=== PATIENT | female | born 1950 | race Caucasian/White ===

== ENCOUNTER 2017-06-30 16:57 | Emergency (ER) | payer MEDICARE ==
[~2017-06-30] VITALS: Ht 170.2 cm; Wt 113.6 kg
[~2017-06-30 16:57] MED LIST: AMITRIPTYLIN25 MG PO; CITALOPRAM20 MG PO; CYCLOBENZAPR10 MG PO; DILAUDID 2MG2 MG/TA1 PO; GABAPENTIN300 MG PO; KEPPRA XR750 MG PO; KEPPRA750 M2 PO; KLOR-CON 1010 ME1 PO; LASIX 40 MG TAB40 MG PO; LYRICA25 MG PO; MELOXICAM7.5 MG PO; METFORMIN500 MG PO; METOPROL TAR25 MG PO; PROTONIX40 MG PO; ROBAXIN-750750 MG PO; ROBITUSSIN AC10 ML PO; ROPINIROLE0.5 MG PO; SIMVASTATIN10 MG PO; SINEQUAN25 MG PO; ULTRAM50 M1 PO; ZPAK PO
[2017-06-30 18:17] LABS: HEMOGLOBIN 12.6 g/dl (12.0-16.0); IMMATURE GRANULOCYTES 0.2 % (0.0-1.0); MEAN CELL VOLUME 92.4 fL CALC (80.0-100.0); MEAN CORPUSCULAR HGB 29.9 pG CALC (26.0-32.0); MEAN CORPUSCULAR HGB CONC 32.3 g/L CALC (32.0-36.0); NEUT# 5.86 thou/uL (2.00-7.15); RED BLOOD COUNT 4.22 mill/uL (4.20-5.60)
[2017-06-30 18:34] LABS: ALBUMIN 3.9 g/dL (3.2-5.0); ALKALINE PHOSPHATASE 92 u/l (38-126); ANION GAP 14 (6-22 (CALC)); BILIRUBIN, TOTAL 0.3 mg/dL (0.0-1.4); BUN 17 mg/dL (8-23); BUN/CREATININE RATIO 19 (12-20 (CALC)); CARBON DIOXIDE 28 mmol/l (22-30); CHLORIDE 107 mmol/l (95-108); CREATININE 0.9 mg/dL (0.5-1.0); GFR > 60 ML/MIN (>=60 (CALC)); GFR FOR AFR.AMER. > 60 ML/MIN (>=60 (CALC)); POTASSIUM 4.4 mmol/l (3.5-5.1); SGOT/AST 19 u/l (9-36); SGPT/ALT 21 u/l (11-66); SODIUM 145 mmol/l (137-146); TOTAL PROTEIN 6.5 g/dL (6.3-8.2)
[2017-06-30 18:45] LABS: MYOGLOBIN 37 ng/mL (0 - 62)
[2017-06-30 22:41] VITALS: BP 159/63
== END 2017-06-30 22:41 | disposition home or self-care (01) ==
LOC: ED 16:57
PROVIDERS: Emergency Medicine
DX: R07.9 Chest pain, unspecified (principal); R42 Dizziness and giddiness; R11.0 Nausea; R06.02 Shortness of breath; I10 Essential (primary) hypertension; R00.1 Bradycardia, unspecified
CPT/HCPCS: Q9967

== ENCOUNTER 2018-11-28 06:33 | Emergency (ER) | payer MEDICARE ==
[~2018-11-28] VITALS: Ht 170.2 cm; Wt 113.6 kg
[2018-11-28] MEDS ORDERED: VIMPAT100 MG PO (06:51)
[2018-11-28] MEDS ORDERED: TRAZODONE50 MG PO (06:53)
[2018-11-28] MEDS ORDERED: LISINOPRIL20 M1 PO (06:53)
[2018-11-28] MEDS ORDERED: BUMETANIDE1 MG PO (06:54)
[2018-11-28] MEDS ORDERED: NORVASC5 M1 PO (06:55)
[2018-11-28] MEDS ORDERED: TOPROL XL50 MG PO (06:56)
[2018-11-28] MEDS ORDERED: LORATADINE10 M3 PO (06:57)
[2018-11-28] MEDS ORDERED: HYDRALAZINE10 MG PO (06:58)
[2018-11-28 07:25] LABS: HEMATOCRIT 38.3 % (37.0-47.0); IMMATURE GRANULOCYTES 0.3 % (0.0-5.0); MEAN CELL VOLUME 94.1 fL CALC (80.0-100.0); MEAN CORPUSCULAR HGB 29.5 pG CALC (26.0-32.0); MEAN CORPUSCULAR HGB CONC 31.3 g/L CALC (32.0-36.0); NEUT# 4.8 thou/uL (2.00-7.15); RED BLOOD COUNT 4.07 mill/uL (4.20-5.60); RED CELL DISTRI WIDTH 13.4 % (11.5-15.5)
[2018-11-28 07:49] LABS: URINE BILIRUBIN - DIPSTICK NEGATIVE (NEGATIVE); URINE BLOOD DIPSTICK NEGATIVE (NEGATIVE); URINE COLOR YELLOW; URINE GLUCOSE - DIPSTICK NEGATIVE (NEGATIVE); URINE KETONE NEGATIVE (NEGATIVE); URINE LEUK ESTERASE NEGATIVE (NEGATIVE); URINE NITRITE - DIPSTICK NEGATIVE (Negative); URINE PROTEIN - DIPSTICK NEGATIVE (NEG-TRACE); URINE UROBILINOGEN - DIPSTICK 0.2 E.U./dL (0.2)
[2018-11-28 08:33] LABS: ALBUMIN 3.7 g/dL (3.2-5.0); ALKALINE PHOSPHATASE 82 u/l (38-126); ANION GAP 11 (6-22 (CALC)); BILIRUBIN, TOTAL 0.4 mg/dL (0.0-1.4); BUN 11 mg/dL (8-23); BUN/CREATININE RATIO 14 (12-20 (CALC)); CARBON DIOXIDE 31 mmol/l (22-30); CHLORIDE 106 mmol/l (95-108); CREATININE 0.8 mg/dL (0.5-1.0); GFR > 60 ML/MIN (>=60 (CALC)); GFR FOR AFR.AMER. > 60 ML/MIN (>=60 (CALC)); POTASSIUM 3.6 mmol/l (3.5-5.1); SGOT/AST 21 u/l (9-36); SODIUM 145 mmol/l (137-146); TOTAL PROTEIN 6.8 g/dL (6.3-8.2)
[2018-11-28 08:45] LABS: MYOGLOBIN 41 ng/mL (0 - 62)
[2018-11-28] MEDS ORDERED: CATAPRES0.1 MG PO (10:29)
[2018-11-28 10:50] VITALS: BP 149/66
== END 2018-11-28 11:09 | disposition home or self-care (01) ==
LOC: ED 06:33
PROVIDERS: Family Medicine
DX: I10 Essential (primary) hypertension (principal); R51 Headache

== ENCOUNTER 2019-03-22 22:12 | Inpatient (IN) | payer MEDICARE ==
[~2019-03-22] VITALS: Ht 170.2 cm; Wt 119.2 kg
[~2019-03-22 22:12] MED LIST changes: +BUMETANIDE1 MG PO; +CATAPRES0.1 MG PO; +HYDRALAZINE10 MG PO; +LISINOPRIL20 M1 PO; +LORATADINE10 M3 PO; +NORVASC5 M1 PO; +TOPROL XL50 MG PO; +TRAZODONE50 MG PO; +VIMPAT100 MG PO
[2019-03-22 23:05] LABS: HEMOGLOBIN 12.1 g/dl (12.0-16.0); IMMATURE GRANULOCYTES 0.3 % (0.0-5.0); MEAN CELL VOLUME 92.8 fL CALC (80.0-100.0); MEAN CORPUSCULAR HGB CONC 31.3 g/L CALC (32.0-36.0); NEUT# 7.79 thou/uL (2.00-7.15); RED BLOOD COUNT 4.17 mill/uL (4.20-5.60); RED CELL DISTRI WIDTH 14.1 % (11.5-15.5)
[2019-03-22 23:22] LABS: HEMATOCRIT 38.7 % (37.0-47.0)
[2019-03-22 23:23] LABS: ALBUMIN 4.2 g/dL (3.2-5.0); ALKALINE PHOSPHATASE 66 u/l (38-126); ANION GAP 9 (6-22 (CALC)); BILIRUBIN, TOTAL 0.9 mg/dL (0.0-1.4); BUN 10 mg/dL (8-23); BUN/CREATININE RATIO 11 (12-20 (CALC)); CARBON DIOXIDE 39 mmol/l (22-30); CHLORIDE 96 mmol/l (95-108); CREATININE 0.9 mg/dL (0.5-1.0); GFR > 60 ML/MIN (>=60 (CALC)); GFR FOR AFR.AMER. > 60 ML/MIN (>=60 (CALC)); POTASSIUM 3.4 mmol/l (3.5-5.1); SGOT/AST 47 u/l (9-36); SODIUM 141 mmol/l (137-146); TOTAL PROTEIN 7.9 g/dL (6.3-8.2)
[2019-03-22 23:35] LABS: MYOGLOBIN 52 ng/mL (0 - 62)
[2019-03-23] VITALS (13 sets, daily range): BP systolic 106–199; BP diastolic 46–83
[2019-03-23] MEDS ORDERED: ASPIRIN 81 LOW81 MG PO (01:03)
[2019-03-24] VITALS (11 sets, daily range): BP systolic 103–157; BP diastolic 42–76
[2019-03-24 06:36] LABS: ANION GAP 9 (6-22 (CALC)); BUN 10 mg/dL (8-23); BUN/CREATININE RATIO 10 (12-20 (CALC)); CARBON DIOXIDE 39 mmol/l (22-30); CHLORIDE 96 mmol/l (95-108); CREATININE 0.9 mg/dL (0.5-1.0); GFR > 60 ML/MIN (>=60 (CALC)); GFR FOR AFR.AMER. > 60 ML/MIN (>=60 (CALC)); MAGNESIUM 2.2 mg/dL (1.6-2.3); POTASSIUM 3.1 mmol/l (3.5-5.1); SODIUM 141 mmol/l (137-146)
[2019-03-25] VITALS: BP 113/48
[2019-03-25 03:45] VITALS: BP 138/51
[2019-03-25 08:10] VITALS: BP 125/68
[2019-03-25 08:54] LABS: ANION GAP 7 (6-22 (CALC)); BUN 9 mg/dL (8-23); BUN/CREATININE RATIO 9 (12-20 (CALC)); CARBON DIOXIDE 38 mmol/l (22-30); CHLORIDE 97 mmol/l (95-108); CREATININE 0.9 mg/dL (0.5-1.0); GFR > 60 ML/MIN (>=60 (CALC)); GFR FOR AFR.AMER. > 60 ML/MIN (>=60 (CALC)); POTASSIUM 3.1 mmol/l (3.5-5.1); SODIUM 139 mmol/l (137-146)
[2019-03-25] MEDS ORDERED: KLOR-CON 1010 MEQ PO (10:32)
[2019-03-25 11:05] VITALS: BP 156/58
[2019-03-25 16:09] VITALS: BP 116/46
== END 2019-03-25 16:30 | disposition home health service (06) | DRG 309 ==
LOC: ED 22:12 → ED-I 22:45 → ED 03-23 01:00 → ICU 03-23 01:01 → MS2 03-23 15:14
PROVIDERS: Emergency Medicine; ADMIT Internal Medicine; ATTEND Internal Medicine
DX: R00.1 Bradycardia, unspecified (principal); I50.32 Chronic diastolic (congestive) heart failure; J96.11 Chronic respiratory failure with hypoxia; Z68.41 Body mass index [BMI] 40.0-44.9, adult; T44.7X5A Adverse effect of beta-adrenoreceptor antagonists, initial encounter; I11.0 Hypertensive heart disease with heart failure; E11.8 Type 2 diabetes mellitus with unspecified complications; G40.909 Epilepsy, unspecified, not intractable, without status epilepticus; M19.90 Unspecified osteoarthritis, unspecified site; E66.01 Morbid (severe) obesity due to excess calories; G47.33 Obstructive sleep apnea (adult) (pediatric); E78.5 Hyperlipidemia, unspecified; G25.81 Restless legs syndrome; E87.6 Hypokalemia; G89.29 Other chronic pain; M54.9 Dorsalgia, unspecified; M62.830 Muscle spasm of back; Z96.89 Presence of other specified functional implants; Z91.19 Patient's noncompliance with other medical treatment and regimen; Z79.84 Long term (current) use of oral hypoglycemic drugs
CPT/HCPCS: G0378

== ENCOUNTER 2019-03-31 09:19 | Inpatient (IN) | payer MEDICARE ==
[~2019-03-31] VITALS: Ht 170.2 cm; Wt 117.9 kg
[~2019-03-31 09:19] MED LIST changes: +ASPIRIN 81 LOW81 MG PO; +KLOR-CON 1010 MEQ PO
--- NOTE | 2019-03-31 09:32 | NUR ---
PT TO ROOM FOR EXAM
--- NOTE | 2019-03-31 09:54 | NUR ---
REPORT RECIEVED FROM GABY SIMMS
[2019-03-31 10:18] LABS: HEMATOCRIT 34.6 % (37.0-47.0); HEMOGLOBIN 10.6 g/dl (12.0-16.0); IMMATURE GRANULOCYTES 0.5 % (0.0-5.0); MEAN CELL VOLUME 94.5 fL CALC (80.0-100.0); MEAN CORPUSCULAR HGB CONC 30.6 g/L CALC (32.0-36.0); NEUT# 4.89 thou/uL (2.00-7.15); RED BLOOD COUNT 3.66 mill/uL (4.20-5.60); RED CELL DISTRI WIDTH 13.5 % (11.5-15.5)
--- NOTE | 2019-03-31 10:20 | NUR ---
PT STATES HAVING RIGHT SIDED STERNAL PAIN THAT STARTED AT 0600 THIS MORNING. PT STATES HAVING INCREASE IN SOB THAT BEGAN AFTER BEING DISCHARGED FROM THE HOSPITAL. PT IS AOX4, DENIES ANY WEAKNESS OR N/V
[2019-03-31 10:35] LABS: ANION GAP 8 (6-22 (CALC)); BUN 14 mg/dL (8-23); BUN/CREATININE RATIO 14 (12-20 (CALC)); CARBON DIOXIDE 38 mmol/l (22-30); CHLORIDE 97 mmol/l (95-108); GFR 55 ML/MIN (>=60 (CALC)); GFR FOR AFR.AMER. > 60 ML/MIN (>=60 (CALC)); POTASSIUM 3.6 mmol/l (3.5-5.1); SODIUM 140 mmol/l (137-146)
--- NOTE | 2019-03-31 10:57 | NUR ---
MD AT BEDSIDE TO DISCUSS ADMISSION
--- NOTE | 2019-03-31 11:57 | NUR ---
PT RESTING ON STRETCHER, NO COMPLAINTS STATED AT THIS TIME.
--- NOTE | 2019-03-31 13:18 | NUR ---
PT INFORMED OF ADDITIONAL WAIT TIME FOR ADMISSION
--- NOTE | 2019-03-31 14:18 | NUR ---
PT TO BSC AND BACK TO BED- INCREASE IN SOB ON EXERTION
--- NOTE | 2019-03-31 14:39 | NUR ---
REPORT CALLED TO JORDY QUINONES RN ACCEPTED PT
--- NOTE | 2019-03-31 14:44 | NUR ---
PT CAME FROM ER VIA WHEELCHAIR BY NAIMA. STAND BY ASSIST TO SCALE THEN TO BED. WATER JET LOOM FIXER IN ROOM TO OBTAIN VS. CALL LIGHT IN REACH.
--- NOTE | 2019-03-31 14:45 | NUR ---
Admission Note Report Given to: HUBER SIMMS Transported by: X Wheelchair Stretcher Transported with: X Nurse Transporter X Patent IV X O2 X Weighbridge Operator TRANSPORTED TO 282 WITHOUT INCIDENT
[2019-03-31 14:56] VITALS: BP 140/62
--- NOTE | 2019-03-31 16:09 | NUR ---
ASSESSMENT DONE. PT IS A&O X3. PT STATED PAIN IN BACK .TELE IN PLACE. 20 RFA THAT APPEARS HEALTHY. 02 AT 3L VIA NC. PT DENIES CHEST PAIN AT THIS TIME. RESPS EVEN AND UNLABORED. CALL LIGHT IN REACH.
--- NOTE | 2019-03-31 19:00 | NUR ---
REPORT FROM HUBER SIMMS. PT RESTING IN BED. ALERT AND ORIENTED. PT DENIES ANY PAIN OR DISCOMFORT. SEIZURE PRECAUTIONS AND CLAY BURNER IN PLACE. IV SITE APPEARS HEALTHY. DISCUSSED POC. PT VERBALIZED UNDERSTANDING. CALL LIGHT WITHIN REACH. WILL CONTINUE TO MONITOR.
[2019-03-31 19:15] VITALS: BP 142/67
--- NOTE | 2019-03-31 19:34 | NUR ---
PT STATES ULTRAM NOT VERY EFFECTIVE AT THIS TIME FOR CHRONIC BACK PAIN. PRN ORDER FOR PO FLEXIRIL OBTAINED AT THIS TIME PER PT REQUEST FOR MUSCLE SPASMS.
--- NOTE | 2019-03-31 20:34 | NUR ---
PT STATES HOME DOSE OF KEPPRA 1500MG PO BID. RURAL SERVICE ENGINEER OBSERVED CURRENT SCRIPT FROM AMA OFFICE. ON PHYSICIAN NOTIFIED AND ORDERS CLARIFIED AT THIS TIME. CLARIFICATION SENT TO PHARMACY.
--- NOTE | 2019-03-31 20:38 | NUR ---
PT TOOK HOME MEDICATION VIMPAT AT THIS TIME, PHYSICIAN AWARE. MEDICATION OBTAINED FROM PT TO SEND TO PHARMACY.
--- NOTE | 2019-03-31 23:37 | NUR ---
PT MEDICATED WITH PRN APAP FOR LOWER BACK PAIN 9-10. HOT PACKS PROVIDED AND ENCOURAGED PT TO REPOSITION SELF IN BED. PT DENIES ANY OTHER WANTS OR NEEDS AT THIS ITME. CALL LIGHT WITHIN REACH. WILL CONTINUE TO MONITOR.
[2019-04-01] VITALS (7 sets, daily range): BP systolic 117–141; BP diastolic 53–65
--- NOTE | 2019-04-01 02:42 | NUR ---
PT MEDICATED FOR BACK PAIN 9-10. ENCOURAGED PT TO REPOSITION SELF IN BED. PT REFUSED. NO OTHER WANTS OR NEEDS AT THIS TIME. NO APPARENT DISTRESS NOTED. CALL LIGHT WITHIN REACH. WILL CONTINUE TO MONITOR.
--- NOTE | 2019-04-01 06:30 | NUR ---
PT MEDICATED AND REPOSITIONED IN BED FOR BACK PAIN 8-10. CALL LIGHT WITHIN REACH. WILL CONTINUE TO MONITOR.
--- NOTE | 2019-04-01 08:06 | NUR ---
ASSESSMENT DONE. PT IS A&O X3. O2 AT 3L VIA NC. PT STATED PAIN IN BACK. PT DENIES ANY NEEDS AT THIS TIME. CALL LIGHT IN REACH.
--- NOTE | 2019-04-01 11:35 | NUR ---
I SPOKE WITH KRISTA FROM DR.ALTAJARS THORNE OFFICE @1138 AM. SHE VERIFIED THE CONSULTATION AND STATED SHE WOULD CONTACT HIM. #[phone]
--- NOTE | 2019-04-01 11:41 | NUR ---
PT STATED PAIN IN BACK. MEDICATED PT WITH ULTRAM. TELE IN PLACE. FAMILY MEMBERS IN ROOM. PT DENIES ANY OTHER NEEDS AT THIS TIME. CALL LIGHT IN REACH.
--- NOTE | 2019-04-01 15:30 | NUR ---
PT IS VISITING IN ROOM WITH FAMILY. PT DENIES NEEDS AT THIS TIME. CALL LIGHT IN REACH.
--- NOTE | 2019-04-01 16:42 | NUR ---
WARM PACK PROVIDED FOR PT BACK PAIN. PT DENIES ANY OTHER NEEDS AT THIS TIME. CALL LIGHT IN REACH.
--- NOTE | 2019-04-01 19:00 | NUR ---
PT REPORT RECEIVED. PT RESTING IN BED A&O X3. NO DISTRESS NOTED. PT C/O OF SHARP BACK PAIN. NO OTHER NEEDS OR CONCERNS AT THIS TIME. CALL LIGHT WITHIN REACH. CONTINUE TO MONITOR.
--- NOTE | 2019-04-02 | NUR ---
PT RESTING IN BED. NO FURTHER NEEDS AT THIS TIME. CALL LIGHT WITHIN REACH. CONTINUE TO MONITOR.
[2019-04-02 04:14] VITALS: BP 165/74
--- NOTE | 2019-04-02 04:48 | NUR ---
PT RESTING IN BED. C/O SHARP BACK PAIN. PAIN MEDICATION GIVEN. TOLERATED WELL. CALL LIGHT WITHIN REACH. CONTINUE TO MONITOR.
[2019-04-02 05:58] LABS: ANION GAP 10 (6-22 (CALC)); BUN 15 mg/dL (8-23); BUN/CREATININE RATIO 17 (12-20 (CALC)); CARBON DIOXIDE 38 mmol/l (22-30); CHLORIDE 95 mmol/l (95-108); CREATININE 0.9 mg/dL (0.5-1.0); GFR > 60 ML/MIN (>=60 (CALC)); GFR FOR AFR.AMER. > 60 ML/MIN (>=60 (CALC)); MAGNESIUM 2.1 mg/dL (1.6-2.3); SODIUM 139 mmol/l (137-146)
[2019-04-02 08:20] VITALS: BP 159/69
--- NOTE | 2019-04-02 08:20 | NUR ---
ASSESSMENT IS COMPLTED: IV SITE IS FREE FROM REDNESS OR EDEMA. HR IS REG, PULSES ARE STRONG X4, ABD IS SOFT WITH ACTIVE BS. BREATH SOUNDS ARE CLEAR,BILATERALLY, NO C/O SOB, TELE MONITOR IN PLACE. CONTINUE TO OSEBRVE AND MONITOR.
[2019-04-02 12:00] VITALS: BP 141/61
[2019-04-02] MEDS ORDERED: MICARDIS80 MG PO (12:14)
[2019-04-02] MEDS ORDERED: LASIX 40 MG TAB40 MG PO (12:14)
--- NOTE | 2019-04-02 12:20 | NUR ---
PT HAS BEEN IN THE CHAIR, NO DISTRESS NOTED. IV SITE IS FREE FROM REDNESS OR EDEMA. CONTINUE TO OSBERVE AND MONITOR.
--- NOTE | 2019-04-02 16:00 | NUR ---
PT WAS DISCHARGED WITH ALL PAPERS. IV SITE DISCONITNUED CATHETER INTACT. NO REDNESS OR EDEMA. FAMILY IN THE ROOM. CONTINUE TO OSBERVE AND MONITOR
--- NOTE | 2019-04-02 16:00 | NUR ---
PT RECEIVED DISCHARGE INSTRUCTIONS VERBALIZED UNDERSTANDING,. IV SITE DISCONTINUED CATHETER INTACT. NO REDNESS OR EDEMA. Discharge instructions given. Patient verbalizes understanding of same. Discharged in stable condition via Wheelchair to Home with family. All belongings sent with pt.
== END 2019-04-02 16:00 | disposition home or self-care (01) | DRG 313 ==
LOC: ED 09:19 → ED-I 10:48 → ED 13:33 → MS2 13:34
PROVIDERS: Family Medicine; Nurse Practitioner Family; ADMIT Internal Medicine; ATTEND Internal Medicine
DX: R07.9 Chest pain, unspecified (principal); J96.11 Chronic respiratory failure with hypoxia; R00.2 Palpitations; I51.89 Other ill-defined heart diseases; I10 Essential (primary) hypertension; M19.90 Unspecified osteoarthritis, unspecified site; E78.5 Hyperlipidemia, unspecified; G47.33 Obstructive sleep apnea (adult) (pediatric); G25.81 Restless legs syndrome; M54.9 Dorsalgia, unspecified; G89.29 Other chronic pain; G40.909 Epilepsy, unspecified, not intractable, without status epilepticus; Z99.81 Dependence on supplemental oxygen; Z96.89 Presence of other specified functional implants
CPT/HCPCS: G0378; Q9967

== ENCOUNTER 2019-05-18 20:33 | Observation (INO) | payer MEDICARE ==
[~2019-05-18] VITALS: Ht 170.2 cm; Wt 118.0 kg
[~2019-05-18 20:33] MED LIST changes: +MICARDIS80 MG PO
[2019-05-18 21:29] LABS: HEMATOCRIT 36.9 % (37.0-47.0); HEMOGLOBIN 11.6 g/dl (12.0-16.0); IMMATURE GRANULOCYTES 0.3 % (0.0-5.0); MEAN CELL VOLUME 92.7 fL CALC (80.0-100.0); MEAN CORPUSCULAR HGB 29.1 pG CALC (26.0-32.0); MEAN CORPUSCULAR HGB CONC 31.4 g/L CALC (32.0-36.0); NEUT# 7.1 thou/uL (2.00-7.15); RED BLOOD COUNT 3.98 mill/uL (4.20-5.60); RED CELL DISTRI WIDTH 13.2 % (11.5-15.5)
[2019-05-18 21:45] LABS: ALKALINE PHOSPHATASE 79 u/l (38-126); ANION GAP 11 (6-22 (CALC)); BILIRUBIN, TOTAL 0.3 mg/dL (0.0-1.4); BUN 15 mg/dL (8-23); BUN/CREATININE RATIO 17 (12-20 (CALC)); CARBON DIOXIDE 32 mmol/l (22-30); CHLORIDE 100 mmol/l (95-108); CREATININE 0.9 mg/dL (0.5-1.0); GFR > 60 ML/MIN (>=60 (CALC)); GFR FOR AFR.AMER. > 60 ML/MIN (>=60 (CALC)); POTASSIUM 3.4 mmol/l (3.5-5.1); PROTHROMBIN TIME 10.4 SECONDS (9.0-12.5); SGOT/AST 22 u/l (9-36); SODIUM 139 mmol/l (137-146); TOTAL PROTEIN 7.3 g/dL (6.3-8.2)
[2019-05-19] VITALS (7 sets, daily range): BP systolic 124–165; BP diastolic 52–68
--- NOTE | 2019-05-19 01:15 | NUR ---
PT C/O BEING TOO UNCOMFORTABLE TO BE IN THE BED. PT PLACED IN WHEEL CHAIR. WARM BLANKETS APPLIED.
--- NOTE | 2019-05-19 02:22 | NUR ---
ATTEMPTED TO CALL REPORT. WILL CALL BACK.
--- NOTE | 2019-05-19 02:30 | NUR ---
PT ASSISTED BACK TO BED. STATES HURTS TOO MUCH TO BE UP IN CHAIR.
--- NOTE | 2019-05-19 03:08 | NUR ---
REPORT TO DEMI GILBERT
[2019-05-19] MEDS ORDERED: LEXAPRO10 MG PO ×2 (03:11→17:01)
[2019-05-19] MEDS ORDERED: SIMVASTATIN10 MG PO (03:11)
[2019-05-19] MEDS ORDERED: [UNRECOGNIZED DRUG - OTHER] (03:15)
--- NOTE | 2019-05-19 03:35 | NUR ---
PT TO FLOOR VIA W/C WITH O2 @ 2 LPM NC. NO C/O. FEELS MUCH BETTER.
--- NOTE | 2019-05-19 03:38 | NUR ---
PT. ARRIVED TO THE FLOOR VIA W/C ACCOMPANIED BY ER NURSE. PT. ABLE TO AMBULATE TO SCALE AND BED.
--- NOTE | 2019-05-19 04:50 | NUR ---
ADMISSION ASSESMENT COMPLETED. IV SITE PATENT AND SL. NO RESP. DISTRESS NOTED. O2 INFUSING PER NC PER ORDER, PT. REPORTS SHE USES OT PRN AT HOME. ORTHOSTATICS COMPLETED AND CHARTED IN INTERVENTION. NEURO CHECK WNL. PT. C/O LEFT SHOULDER PAIN REMAINING 10/10 EVEN POST TRAMADOL IN ED, CALLED ER PHYSICIAN AND NEW ORDER RECEIVED WITH TORADOL. UPDATED PT. WITH THIS AND WILL CARRY THIS ORDER OUT. TELEMETTY IN PLACE. PT. HAS PAIN PUMP TO LEFT LOWER ABDOMEN. EDUCATED ON ROOM, CALL LIGHT, AND POC; VERBALIZES UNDERSTANDING. CALL LIGHT IS IN REACH.
[2019-05-19 06:24] LABS: URINE BILIRUBIN - DIPSTICK NEGATIVE (NEGATIVE); URINE BLOOD DIPSTICK NEGATIVE (NEGATIVE); URINE COLOR YELLOW; URINE GLUCOSE - DIPSTICK NEGATIVE (NEGATIVE); URINE KETONE NEGATIVE (NEGATIVE); URINE LEUK ESTERASE NEGATIVE (NEGATIVE); URINE NITRITE - DIPSTICK NEGATIVE (Negative); URINE PROTEIN - DIPSTICK NEGATIVE (NEG-TRACE); URINE UROBILINOGEN - DIPSTICK 0.2 E.U./dL (0.2)
[2019-05-19 06:27] LABS: COCAINE NEGATIVE (NEGATIVE); METHADONE NEGATIVE (NEGATIVE); TETRAHYDROCANNABIONOL NEGATIVE (NEGATIVE)
[2019-05-19 06:28] LABS: BARBITURATES NEGATIVE (NEGATIVE); OXCYCODONE NEGATIVE (NEGATIVE); TRICYLIC ANTIDEPRESSANTS NEGATIVE (NEGATIVE)
--- NOTE | 2019-05-19 21:13 | NUR ---
PT MEDICATED ORDERS PROVIDE. MED REQ DISCUSSED. PT ASSESSMENT COMPLETED AT THS TIME. PT DENIES ANY NEEDS, CALL LIGHT IN HAND AND PT ENCOURAGED TO CALL.
--- NOTE | 2019-05-19 23:10 | NUR ---
PT MEDICATED ORDERS PROVIDE. PT DENIES ANY OTHER NEEDS AT THIS TIME. CALL LIGHT IS AT SIDE, LIGHTS LOW W/TV ON.
[2019-05-20 03:38] VITALS: BP 137/66
--- NOTE | 2019-05-20 04:25 | NUR ---
LAB IS IN W/PT. PT DENIES ANY NEEDS AT THIS TIME. V/S HAVE BEEN OBTAINED BY AIDE. PT ENCOURAGED TO CALL NEEDS ARISE.
[2019-05-20 05:07] LABS: HEMATOCRIT 33.7 % (37.0-47.0); HEMOGLOBIN 10.5 g/dl (12.0-16.0); IMMATURE GRANULOCYTES 0.3 % (0.0-5.0); MEAN CELL VOLUME 94.1 fL CALC (80.0-100.0); MEAN CORPUSCULAR HGB 29.3 pG CALC (26.0-32.0); MEAN CORPUSCULAR HGB CONC 31.2 g/L CALC (32.0-36.0); NEUT# 5.05 thou/uL (2.00-7.15); RED BLOOD COUNT 3.58 mill/uL (4.20-5.60); RED CELL DISTRI WIDTH 13.5 % (11.5-15.5)
[2019-05-20 05:18] LABS: ANION GAP 7 (6-22 (CALC)); BUN 15 mg/dL (8-23); BUN/CREATININE RATIO 18 (12-20 (CALC)); CARBON DIOXIDE 38 mmol/l (22-30); CHLORIDE 98 mmol/l (95-108); CREATININE 0.8 mg/dL (0.5-1.0); GFR > 60 ML/MIN (>=60 (CALC)); GFR FOR AFR.AMER. > 60 ML/MIN (>=60 (CALC)); POTASSIUM 3.5 mmol/l (3.5-5.1); SODIUM 139 mmol/l (137-146)
[2019-05-20 08:00] VITALS: BP 140/63
[2019-05-20 10:45] VITALS: BP 133/56
== END 2019-05-20 15:25 | disposition home health service (06) ==
LOC: ED 20:33 → ED-I 23:55 → ED 05-19 00:14 → MS2 05-19 00:15
PROVIDERS: Nurse Practitioner Family; ADMIT Internal Medicine; ATTEND Internal Medicine
DX: R55 Syncope and collapse (principal); J96.22 Acute and chronic respiratory failure with hypercapnia; I10 Essential (primary) hypertension; G40.209 Localization-related (focal) (partial) symptomatic epilepsy and epileptic syndromes with complex partial seizures, not intractable, without status epilepticus; G89.4 Chronic pain syndrome; E78.5 Hyperlipidemia, unspecified; G47.33 Obstructive sleep apnea (adult) (pediatric); E66.9 Obesity, unspecified; D64.9 Anemia, unspecified; Z68.41 Body mass index [BMI] 40.0-44.9, adult; Z79.891 Long term (current) use of opiate analgesic; Z99.81 Dependence on supplemental oxygen; Z96.89 Presence of other specified functional implants
CPT/HCPCS: G0378; J1650

== ENCOUNTER 2019-06-13 09:46 | Observation (INO) | payer MEDICARE ==
[~2019-06-13] VITALS: Ht 170.2 cm; Wt 120.2 kg
[~2019-06-13 09:46] MED LIST changes: +LEXAPRO10 MG PO; +[UNRECOGNIZED DRUG - OTHER]
[2019-06-13 10:25] LABS: HEMATOCRIT 37.1 % (37.0-47.0); HEMOGLOBIN 11.4 g/dl (12.0-16.0); IMMATURE GRANULOCYTES 0.5 % (0.0-5.0); MEAN CELL VOLUME 94.4 fL CALC (80.0-100.0); MEAN CORPUSCULAR HGB CONC 30.7 g/L CALC (32.0-36.0); NEUT# 5.93 thou/uL (2.00-7.15); RED BLOOD COUNT 3.93 mill/uL (4.20-5.60); RED CELL DISTRI WIDTH 13.7 % (11.5-15.5)
[2019-06-13 10:56] LABS: ALBUMIN 3.7 g/dL (3.2-5.0); ALKALINE PHOSPHATASE 74 u/l (38-126); ANION GAP 9 (6-22 (CALC)); BILIRUBIN, TOTAL 0.4 mg/dL (0.0-1.4); BUN 20 mg/dL (8-23); BUN/CREATININE RATIO 23 (12-20 (CALC)); CARBON DIOXIDE 37 mmol/l (22-30); CHLORIDE 100 mmol/l (95-108); CREATININE 0.9 mg/dL (0.5-1.0); GFR > 60 ML/MIN (>=60 (CALC)); GFR FOR AFR.AMER. > 60 ML/MIN (>=60 (CALC)); POTASSIUM 4.2 mmol/l (3.5-5.1); SGOT/AST 24 u/l (9-36); SODIUM 141 mmol/l (137-146)
[2019-06-13 11:08] LABS: MYOGLOBIN 49 ng/mL (0 - 62)
[2019-06-13 11:31] LABS: URINE BILIRUBIN - DIPSTICK NEGATIVE (NEGATIVE); URINE BLOOD DIPSTICK NEGATIVE (NEGATIVE); URINE COLOR YELLOW; URINE GLUCOSE - DIPSTICK NEGATIVE (NEGATIVE); URINE KETONE NEGATIVE (NEGATIVE); URINE LEUK ESTERASE NEGATIVE (NEGATIVE); URINE NITRITE - DIPSTICK NEGATIVE (Negative); URINE PH 5.5 (4.5-8.0); URINE PROTEIN - DIPSTICK NEGATIVE (NEG-TRACE); URINE UROBILINOGEN - DIPSTICK 0.2 E.U./dL (0.2)
[2019-06-13] MEDS ORDERED: LIPITOR10 M1 PO (11:42)
[2019-06-13 13:50] VITALS: BP 144/69
[2019-06-13 15:15] VITALS: BP 126/62
[2019-06-13 18:53] VITALS: BP 158/71
[2019-06-13 23:52] VITALS: BP 121/63
[2019-06-14 03:58] VITALS: BP 101/48
[2019-06-14 07:52] VITALS: BP 116/57
[2019-06-14 12:18] VITALS: BP 116/48
[2019-06-14 16:20] VITALS: BP 154/57
[2019-06-14 19:12] VITALS: BP 143/60
[2019-06-14 23:16] VITALS: BP 133/57
[2019-06-15] VITALS (14 sets, daily range): BP systolic 89–174; BP diastolic 42–83
[2019-06-15 05:38] LABS: HEMATOCRIT 33.8 % (37.0-47.0); HEMOGLOBIN 10.5 g/dl (12.0-16.0); IMMATURE GRANULOCYTES 0.5 % (0.0-5.0); MEAN CELL VOLUME 93.4 fL CALC (80.0-100.0); MEAN CORPUSCULAR HGB CONC 31.1 g/L CALC (32.0-36.0); NEUT# 5.73 thou/uL (2.00-7.15); RED BLOOD COUNT 3.62 mill/uL (4.20-5.60); RED CELL DISTRI WIDTH 13.6 % (11.5-15.5)
[2019-06-15 06:03] LABS: CREATININE 1.1 mg/dL (0.5-1.0); MAGNESIUM 2.1 mg/dL (1.6-2.3); POTASSIUM 3.9 mmol/l (3.5-5.1)
[2019-06-16] VITALS (14 sets, daily range): BP systolic 70–152; BP diastolic 33–96
[2019-06-16 05:31] LABS: CREATININE 1.2 mg/dL (0.5-1.0); MAGNESIUM 2.6 mg/dL (1.6-2.3); POTASSIUM 4.2 mmol/l (3.5-5.1)
== END 2019-06-16 13:20 | disposition home health service (06) ==
LOC: ED 09:46 → ED-I 11:41 → ED 11:52 → MS2 11:53 → ICU 06-15 17:08
PROVIDERS: Emergency Medicine; Nurse Practitioner Family; ADMIT Internal Medicine; ATTEND Internal Medicine
DX: R07.9 Chest pain, unspecified (principal); J96.22 Acute and chronic respiratory failure with hypercapnia; J96.21 Acute and chronic respiratory failure with hypoxia; I11.0 Hypertensive heart disease with heart failure; I50.32 Chronic diastolic (congestive) heart failure; I16.0 Hypertensive urgency; E78.5 Hyperlipidemia, unspecified; G89.4 Chronic pain syndrome; G47.33 Obstructive sleep apnea (adult) (pediatric); G47.36 Sleep related hypoventilation in conditions classified elsewhere; Z68.41 Body mass index [BMI] 40.0-44.9, adult; E66.01 Morbid (severe) obesity due to excess calories; G25.81 Restless legs syndrome; G40.209 Localization-related (focal) (partial) symptomatic epilepsy and epileptic syndromes with complex partial seizures, not intractable, without status epilepticus; G47.00 Insomnia, unspecified; I49.8 Other specified cardiac arrhythmias; I89.0 Lymphedema, not elsewhere classified; Z79.891 Long term (current) use of opiate analgesic; Z99.81 Dependence on supplemental oxygen; Z91.19 Patient's noncompliance with other medical treatment and regimen
CPT/HCPCS: J1650

== ENCOUNTER 2019-10-22 20:15 | Observation (INO) | payer MEDICARE ==
[~2019-10-22] VITALS: Ht 167.6 cm; Wt 141.1 kg
[~2019-10-22 20:15] MED LIST changes: +LIPITOR10 M1 PO
--- NOTE | 2019-10-22 21:10 | NUR ---
BY WC TO ROOM
[2019-10-22] MEDS ORDERED: BUMEX1 M1 PO (21:42)
[2019-10-22 22:14] LABS: HEMOGLOBIN 11.6 g/dl (12.0-16.0); IMMATURE GRANULOCYTES 0.6 % (0.0-5.0); MEAN CELL VOLUME 91.4 fL CALC (80.0-100.0); MEAN CORPUSCULAR HGB 28.6 pG CALC (26.0-32.0); MEAN CORPUSCULAR HGB CONC 31.4 g/dL CAL (32.0-36.0); NEUT# 7.82 thou/uL (2.00-7.15); RED BLOOD COUNT 4.05 mill/uL (4.20-5.60); RED CELL DISTRI WIDTH 13.6 % (11.5-15.5)
--- NOTE | 2019-10-22 22:29 | NUR ---
IV STARTED/LABS DRAWN BY LAB. MEDS GIVEN. XRAYS COMPLETED. EKG DONE. PT STILL C/O PAIN...STARTING TO HYPERVENTILATE. ENCOURAGED TO SLOW BREATHING. BLANKETS GIVEN. FRIEND TO BEDSIDE.
[2019-10-22 22:32] LABS: PROTHROMBIN TIME 10.5 SECONDS (9.0-12.5)
[2019-10-22 22:40] LABS: ALBUMIN 4.3 g/dL (3.2-5.0); ALKALINE PHOSPHATASE 98 u/l (38-126); ANION GAP 10 (6-22 (CALC)); BILIRUBIN, TOTAL 0.5 mg/dL (0.0-1.4); BUN 18 mg/dL (8-23); BUN/CREATININE RATIO 17 (12-20 (CALC)); CARBON DIOXIDE 34 mmol/l (22-30); CHLORIDE 98 mmol/l (95-108); GFR 55 ML/MIN (>=60 (CALC)); GFR FOR AFR.AMER. > 60 ML/MIN (>=60 (CALC)); POTASSIUM 3.7 mmol/l (3.5-5.1); SGOT/AST 34 u/l (9-36); SODIUM 138 mmol/l (137-146); TOTAL PROTEIN 7.5 g/dL (6.3-8.2)
--- NOTE | 2019-10-22 23:12 | NUR ---
DR TO BEDSIDE TO DISCUSS RESULTS.
--- NOTE | 2019-10-22 23:20 | NUR ---
VISITOR HOME. PT ADVISED OF ADMISSION
--- NOTE | 2019-10-23 00:05 | NUR ---
ATTEMPTED TO CALL REPORT. NURSE WILL CALL BACK.
--- NOTE | 2019-10-23 00:19 | NUR ---
REPORT RECEIVED FROM David LE RN.
--- NOTE | 2019-10-23 00:22 | NUR ---
REPORT TO ANTON/MED-SURG
--- NOTE | 2019-10-23 00:30 | NUR ---
TO FLOOR VIA STRETCHER. PT HAS TO BE TRANSFERRED TO BED FROM STRETCHER WITH ORANGE PULL SHEET AND 4 STAFF. PT SCREAMING IN PAIN.
[2019-10-23 00:40] VITALS: BP 144/66
--- NOTE | 2019-10-23 01:30 | NUR ---
NO ORDERS FOR PRN ANALGESIC, SPOKE W/ DR. DELEON RE: PT'S CON'T C/O R-HIP PAIN. ORDER FOR PRN MORPHINE RECEIVED. SEE JUL.
[2019-10-23 03:15] VITALS: BP 152/79
--- NOTE | 2019-10-23 05:42 | NUR ---
PT RESTING IN BED. PHYSICAL ASSESMENT REMAINS UNCHANGED. VSS. PT DENIES NEEDS @ THIS TIME. CALL WILKINS REMAINS WITHIN REACH, AGREES TO CALL PRN.
--- NOTE | 2019-10-23 07:00 | NUR ---
REPORT RECEIVED FROM DEIM WALTON. PT USING CALL LIGHT REQUESTING PAIN MEDICATION; REPORTS RIGHT HIP PAIN OF 10/10; FACIAL GRIMACING AND HAVING DIFFICULTY MOVING IN BED. RESPIRATIONS EVEN AND UNLABORED ON ROOM AIR. IV SITE APPEARS HEALTHY AND FLUSHES. CALL LIGHT WITHIN REACH.
[2019-10-23 07:20] VITALS: BP 133/70
--- NOTE | 2019-10-23 07:20 | NUR ---
MORPHINE GIVEN AT THIS TIME. LUNGS ARE CLEAR; HYPOACTIVE BS; CLEAR YELLOW URINE IN PURWIK CANISTER; 4+ PEDAL EDEMA. PLAN OF CARE REVIEWED. PT ENCOURAGED TO VERBALIZE CONCERNS. STATES UNDERSTANDING. SAFETY MEASURES IN PLACE. CALL LIGHT WITHIN REACH.
[2019-10-23] MEDS ORDERED: VIMPAT100 MG PO (07:24)
[2019-10-23] MEDS ORDERED: CYCLOBENZAPRINE10 MG PO (07:25)
[2019-10-23] MEDS ORDERED: TIZANIDINE HCL2 MG PO (07:26)
--- NOTE | 2019-10-23 10:10 | NUR ---
PT CRYING AND REPORTING 10/10 RIGHT HIP PAIN. MUSCLE RELAXER GIVEN WITH OTHER AM MEDS.
--- NOTE | 2019-10-23 10:21 | NUR ---
SCDS APPLIED TO BLE; IS PROVIDED AND EDUCATED ON. PT ENCOURAGED TCDB.
[2019-10-23 11:43] LABS: URINE BILIRUBIN - DIPSTICK NEGATIVE (NEGATIVE); URINE BLOOD DIPSTICK TRACE-LYSED (NEGATIVE); URINE COLOR YELLOW; URINE GLUCOSE - DIPSTICK NEGATIVE (NEGATIVE); URINE KETONE NEGATIVE (NEGATIVE); URINE LEUK ESTERASE MODERATE (NEGATIVE); URINE NITRITE - DIPSTICK NEGATIVE (Negative); URINE PROTEIN - DIPSTICK NEGATIVE (NEG-TRACE); URINE SPECIFIC GRAVITY 1.015; URINE UROBILINOGEN - DIPSTICK 0.2 E.U./dL (0.2)
[2019-10-23 12:07] LABS: URINE BACTERIA FEW hpf; URINE WBC TNTC WBC/hpf (0-5)
--- NOTE | 2019-10-23 14:30 | NUR ---
HOME MEDS BROUGHT IN BY SISTER AND SENT TO PHARMACY. PT REQUESTING SOMETHING FOR PAIN.
[2019-10-23 14:55] VITALS: BP 93/56
--- NOTE | 2019-10-23 16:01 | NUR ---
NEW ORDER FOR TYLENOL PRN FOR PAIN. SISTER REMAINS AT BEDSIDE.
[2019-10-23 19:23] VITALS: BP 99/54
--- NOTE | 2019-10-23 21:25 | NUR ---
PT IN BED AWAKE, V/S ASSESSED, PT BP IS 113/56, EXPLAINED TO PT THAT I WOULD GET A RECHECK PRIOR TO ADMINISTERING MORPHINE, PT VERBALIZED UNDERSTANDING. PT ASSESSED AT THIS TIME. NO S/O DISTRESS NOTED.
[2019-10-23 22:35] VITALS: BP 111/58
--- NOTE | 2019-10-23 22:35 | NUR ---
PT MEDICATED FOR PAIN 10/10 ON PAIN SCALE.
[2019-10-24] VITALS (7 sets, daily range): BP systolic 92–120; BP diastolic 49–58
--- NOTE | 2019-10-24 02:56 | NUR ---
PT CALLED ASKING FOR PAIN MEDICATION. REPORTING PAIN IN R.HIP. PT V/S ASSESSED, BP 106/52. WILL REEVALUATE FOR HIGHER BP IN A WHILE/INFORMED PT NOT SAFE TO MEDICATE WITH MORPHINE DUE TO LOW BP AT THIS TIME.
--- NOTE | 2019-10-24 06:37 | NUR ---
PT ASKING FOR PAIN MEDICATIONS AGAIN. V/S HAVE BEEN ASSESSED, BP IS LOW
--- NOTE | 2019-10-24 07:15 | NUR ---
REPORT RECEIVED. PT HAVING 10/10 RIGHT HIP PAIN; TEARFUL. MANUAL BLOOD PRESSURE TAKEN 120/58; MORPHINE GIVEN FOR PAIN. RESPIRATIONS EVEN AND UNLABORED ON ROOM AIR; SHALLOW RESPIRATIONS WITH SPO2 AT 90%. PT REMINDED ON USE OF IS AND SHE DEMONSTRATED USE; SPO2 INCREASED TO 97%.
--- NOTE | 2019-10-24 11:40 | NUR ---
DR. GILMORE AT BEDSIDE.
--- NOTE | 2019-10-24 12:00 | NUR ---
MORPHINE GIVEN FOR 10/10 PAIN TO HIP AND BACK. PT RESTING SEMI FOWLERS EATING LUNCH.
--- NOTE | 2019-10-24 16:00 | NUR ---
COVID SWAB OBTAINED FROM RIGHT NARE AND SENT TO LAB. VSS.
--- NOTE | 2019-10-24 19:55 | NUR ---
ASSESSMENT COMPLETED. NO RESP. DISTRESS NOTED. C/O RIGHT HIP/LOWER BACK PAIN 02/18 AND MEDICATED WITH ORDERED PRN MORPHINE, WILL REASSESS. SNACK PROVIDED. PT. REPORTING LAST BM 10/22/19 AND PRUNE JUICE PROVIDED. PURE WIC IN PLACE. ENCOURAGED TO JOSE F FOR ANY NEEDS. CALL LIGHT IS IN REACH.
--- NOTE | 2019-10-24 23:00 | NUR ---
pt. cleaned of a large incontinence of urine and gown and linens changed. new purewick placed. pt. set up to brush her teeth. pt. encouraged to reposition and move in bed. call light is in reach.
--- NOTE | 2019-10-25 00:06 | NUR ---
PT. C/O RIGHT HIP PAIN AND MEDICATED WITH ORDERED PRN MORPHINE, WILL REASSESS. DENIES FURTHER NEEDS. CALL LIGHT IS IN REACH.
[2019-10-25 04:37] VITALS: BP 116/50
--- NOTE | 2019-10-25 04:40 | NUR ---
PT. C/O RIGHT HIP/BACK PAIN AND MEDICATED WITH ORDERED PRN MORPHINE; WILL REASSESS.
[2019-10-25 05:15] LABS: HEMATOCRIT 36.4 % (37.0-47.0); HEMOGLOBIN 11.3 g/dl (12.0-16.0); IMMATURE GRANULOCYTES 0.3 % (0.0-5.0); MEAN CELL VOLUME 91.9 fL CALC (80.0-100.0); MEAN CORPUSCULAR HGB 28.5 pG CALC (26.0-32.0); NEUT# 7.35 thou/uL (2.00-7.15); RED BLOOD COUNT 3.96 mill/uL (4.20-5.60); RED CELL DISTRI WIDTH 13.4 % (11.5-15.5)
--- NOTE | 2019-10-25 05:15 | NUR ---
PT. CHECKED FOR INCONTINENCE OF URINE AND IS DRY AND JIMENEZ CARE GIVEN.PURE WICK IN PLACE. ENCOURAGED TO CALL FOR ANY NEEDS. PO FLUIDS OFFERED.
[2019-10-25 05:26] LABS: ALBUMIN 3.6 g/dL (3.2-5.0); BILIRUBIN, TOTAL 0.6 mg/dL (0.0-1.4); CREATININE 1.1 mg/dL (0.5-1.0); POTASSIUM 3.9 mmol/l (3.5-5.1); TOTAL PROTEIN 6.7 g/dL (6.3-8.2)
--- NOTE | 2019-10-25 07:00 | NUR ---
REPORT RECEIVED FROM DEMI GILBERT. PT RESTING IN BED SEMI FOWLERS; ALERT AND OREINTED. C/O HIP AND BACK PAIN 02/18 AND REQUESTS MORPHINE. RESPIRATIONS SHALLOW AND UNLABORED ON ROOM AIR. PLAN OF CARE REVIEWED. PT ENCOURAGED TO VERBALIZE CONCERNS. STATES UNDERSTANDING. SAFETY MEASURES IN PLACE. CALL LIGHT WITHIN REACH.
[2019-10-25 08:00] VITALS: BP 99/49
--- NOTE | 2019-10-25 08:31 | NUR ---
THIS PT IS APPROPRIATE FOR PT EVALUATION AND INTERVENTION TO ADDRESS MULTIPLE FALLS WITH LE STRENGTHENING, GAIT WITH AD AND BALANCE TRAINING. PLEASE SEND PT EVAL ORDER IF MD IS AGREEABLE. THANKS.
--- NOTE | 2019-10-25 09:00 | NUR ---
BLOOD PRESSURE MEDICATIONS HELD FOR NOW DUE TO LOW BLOOD PRESSURE AND ADMINISTRATION OF MORPHINE FOR 10/10 RIGHT HIP PAIN.
--- NOTE | 2019-10-25 13:41 | NUR ---
PT TRANSPORTED TO CT FOR SCAN [facility]. PRE MEDICATED WITH MORPHINE. SISTER AT BEDSIDE.
--- NOTE | 2019-10-25 14:01 | NUR ---
PT AT BEDSIDE.
[2019-10-25 15:24] VITALS: BP 131/63
--- NOTE | 2019-10-25 18:30 | NUR ---
IV SITE LEAKING AND PAINFUL. D/C'D. NEW SITE PLACED ON LEFT HAND.
[2019-10-25 18:35] VITALS: BP 101/61
--- NOTE | 2019-10-25 18:51 | NUR ---
IV site discontinued, cath intact. No edema , no redness, voices no discomfort.
--- NOTE | 2019-10-25 22:07 | NUR ---
PT MEDICATED AND ASSESSMENT COMPLETED AT THIS TIME. NO S/O DISTRESS NOTED. CALL LIGHT AT BEDSIDE. PT PROVIDED SHERBERT AND ICE. LIGHTS AND TV ARE ON.
--- NOTE | 2019-10-26 00:24 | NUR ---
PT CALLED ASKING FOR MORPHINE AGAIN, ADMINISTERED TWO HOURS PRIOR, I ADVISED PT THAT IT WAS TOO SOON FOR MEDICATION AT THIS TIME. VERBALIZED UNDERSTANDING. PT IS AWAKE WATCHING TV.
[2019-10-26 03:10] VITALS: BP 108/57
--- NOTE | 2019-10-26 04:25 | NUR ---
PT MEDICATED FOR PAIN REPORTED 9/10 ON PAIN SCALE. NO S/O DISTRESS. PT EYES ARE CLOSED.
--- NOTE | 2019-10-26 05:56 | NUR ---
REHABILITATION INSPECTOR REPORTED PT URINE OUTPUT 100CC FOR THE ENTIRE SHIFT PUT OUT TO PUREWICK CATHETER, PT IS DRY IN THE BED. PT BLADDER SCANNED FOR PRECAUTIONS/265CC RETAINED IN BLADDER. PT REPORTED NOT DRINKING MUCH. TWO CUPS OF TEA ARE AT BEDSIDE. WATER PROVIDED AND PT ENCOURAGED TO DRINK WATER IN PLACE OF TEA. VERBALIZED UNDERSTANDING. WILL CONTINUE TO MONITOR FOR OUTPUT AND NOTIFY DAY NURSE OF STATUS.
[2019-10-26 07:49] VITALS: BP 110/52
--- NOTE | 2019-10-26 08:08 | NUR ---
PT SEEN AWAKE, ALERT, ORIENTED X 3. PT ASSISTED UP IN BED FOR BREAKFAST. NO DISTRESS NOTED, ALTHOUGH PT REQUESTS PAIN MED, WHICH IS NOT AVAILABLE YET.
--- NOTE | 2019-10-26 10:16 | NUR ---
SPOKE TO ROSALINO AT DR. MATAMOROS OFFICE REGARDING CONSULTATION. GAVE ROOM NUMBER AND CONSULTATION REQUEST FOR RIGHT HYDRONEPHROSIS. DID GIVE THEM THE CALL BACK NUMBER.
--- NOTE | 2019-10-26 12:12 | NUR ---
PT SEEN BY DR BORDEN TODAY, SEEN SLEEPING UPON ENTERING ROOM, ASSUMED TO BE FROM TOO MUCH PAIN MEDICINE. PT DOES HAVE MORPHINE PUMP WITH BASAL RATE. PAIN MED CHANGED TO LORTAB AFTER DISCUSSION. PT STATES UNABLE TO GET OOB INTO CHAIR PER PAIN.
--- NOTE | 2019-10-26 13:55 | NUR ---
PATIENT REPORTED SEVERE PAIN ON R HIP. PT ATTEMPTED TO SIT PATIENT, HOWEVER, PATIENT IS IN SEVERE PAIN, TEARFUL, AND IN SEVERE SPASM. HOWEVER, PATIENT COOPERATED WITH LE EXERCISES IN SUPINE. RLE HEEL SLIDES AND ANKLE PUMPS X 10 REPS X 1 SET ON EACH EXERCISES. LLE SLR, HIP ABDUCTION-ADDUCTION, HEEL SLIDES, AND ANKLE PUMPS X 10 REPS X 1 SET ON EACH EXERCISES. AMPAC = 10
--- NOTE | 2019-10-26 15:11 | NUR ---
PT HAS BEEN TO CT AND BACK, BUT CT WAS NOT PERFORMED PER IV SIZE TOO SMALL. CT ATTEMPTED TO PLACE ANOTHER, BUT NOT SUCCESSFUL. PT WITH DISCOMFORT MOVING FROM BED TO STRETCHER.
[2019-10-26 15:13] VITALS: BP 115/59
--- NOTE | 2019-10-26 16:23 | NUR ---
PT RECEIVES PAIN MED AT THIS TIME, RLE.
[2019-10-26 18:35] VITALS: BP 83/40
[2019-10-26 19:15] VITALS: BP 100/55
--- NOTE | 2019-10-26 19:45 | NUR ---
PT OFF UNIT FLOOR FOR CT SCAN ACCOMPANIED BY 2X SURVEY CAD TECHNICIAN. PT SELF AMBULATED TO W/STANDBY ASSISTX3. NO ASSISTANCE NEEDED.
--- NOTE | 2019-10-26 20:35 | NUR ---
PT RETURNED FROM CT SCAN, APPEARS TO HAVE TOLERATED WELL.
--- NOTE | 2019-10-26 21:26 | NUR ---
PT MEDICATED ORDERS PROVIDE AND ASSESSMENT COMPLETED AT THIS TIME.
[2019-10-27] VITALS (8 sets, daily range): BP systolic 97–115; BP diastolic 39–58
--- NOTE | 2019-10-27 04:35 | NUR ---
PT HAS BEEN SLEEPING, LAB IS AT BEDSIDE AT THIS TIME.
--- NOTE | 2019-10-27 04:45 | NUR ---
PT CALLED AND ASKED FOR PAIN MEDICATION. MEDICATION WAS PULLED, PT SLEEPING, DID NOT AWAKE TO MY ENTERING ROOM TO ADMINISTER MEDICATION. MEDICATION HELD.
[2019-10-27 05:35] LABS: HEMATOCRIT 33.8 % (37.0-47.0); HEMOGLOBIN 10.5 g/dl (12.0-16.0); IMMATURE GRANULOCYTES 0.2 % (0.0-5.0); MEAN CELL VOLUME 92.3 fL CALC (80.0-100.0); MEAN CORPUSCULAR HGB 28.7 pG CALC (26.0-32.0); MEAN CORPUSCULAR HGB CONC 31.1 g/dL CAL (32.0-36.0); NEUT# 5.45 thou/uL (2.00-7.15); RED BLOOD COUNT 3.66 mill/uL (4.20-5.60); RED CELL DISTRI WIDTH 13.8 % (11.5-15.5)
[2019-10-27 05:51] LABS: CREATININE 1.3 mg/dL (0.5-1.0)
--- NOTE | 2019-10-27 07:00 | NUR ---
REPORT RECEIVED FROM DEMI BUENROSTRO. PT RESTING IN BED SEMI FOWLERS; ALERT AND OREIENTED. C/O RIGHT SIDE PAIN 10/10 AND REQUESTING PAIN MEDICATION. RESPIRATIONS EVEN AND UNLABORED ON ROOM AIR. RESPIRATIONSS ARE SHALLOW AND PT SPO2 91%. ENCOURAGED TO USE IS. PT DEMONSTRATED USE AND CAN GET UP TO 750; WAS ABLE TO PERFORM 1500 ON ADMIT. PT INSTRUCTED TO TCDB. LUNGS ARE CLEAR. PLAN OF CARE REVIEWED INCLUDING SCHEDULED SURGERY TODAY FOR URETERAL STENT PLACEMENT BY ; CURRENTLY NPO. ENCOURAGED TO VERBALIZE CONCERNS. PT STATES UNDERSTANDING. SAFETY MEASURES IN PLACE. CALL LIGHT WITHIN REACH.
--- NOTE | 2019-10-27 10:37 | NUR ---
ANETHESIA AT BEDSIDE.
--- NOTE | 2019-10-27 12:55 | NUR ---
RESTING IN BED SEMI FOWLERS SPEAKING WITH FAMILY ON PHONE. LORTAB GIVEN WITH AM MEDS EARLIER; PT DOES REMAIN NPO. NO REQUESTS OR CONCERNS AT THIS TIME. CONTINUES TO HAVE PAIN WHEN SHE IS AWAKE. TAKING SMALL NAPS.
--- NOTE | 2019-10-27 13:35 | NUR ---
PT CALLED TO REQUEST LORTAB. PT ASLEEP UPON ARROUNDING. SISTER AT BEDSIDE.
--- NOTE | 2019-10-27 14:53 | NUR ---
LORTAB GIVEN FOR PAIN. SISTER REMAINS AT BEDSIDE.
--- NOTE | 2019-10-27 15:20 | NUR ---
PT OFF UNIT WITH OR STAFF VIA BED IN STABLE CONDITION.
--- NOTE | 2019-10-27 19:30 | NUR ---
RECEIVED PT FROM PACU. PTAAOX3. REVIEWED ROOM SAFETY, CALL WILKINS IN REACH.
--- NOTE | 2019-10-27 19:35 | NUR ---
PACU REPORTED ANCEF AND GENTAMYCIN GIVEN.
--- NOTE | 2019-10-27 20:45 | NUR ---
PT C/O BACK REED AND R LEG PAIN, REQUESTED PAIN MED. MEDICATED PER JUL.
--- NOTE | 2019-10-27 21:00 | NUR ---
PT TOLERATING PO FLUIDS AND CRACKERS WITHOUT NAUSEA.
--- NOTE | 2019-10-27 21:57 | NUR ---
PT TOLERATING FOOD WITHOUT NAUSEA.
--- NOTE | 2019-10-27 22:59 | NUR ---
PT PLACED ON BI-PAP BY RESP TECH.
[2019-10-28] VITALS (11 sets, daily range): BP systolic 76–116; BP diastolic 39–61
--- NOTE | 2019-10-28 | NUR ---
PT WITH EYES CLOSED, TOLERATING BI-PAP. NO DISTRESS NOTED. STEVENS DRAINING PINK URINE. CALL WILKINS IN REACH.
--- NOTE | 2019-10-28 02:31 | NUR ---
PT WITH EYES CLOSED, ON BI-PAP. NO DISTRESS NOTED. CALL WILKINS IN REACH.
--- NOTE | 2019-10-28 04:00 | NUR ---
PT WITH EYES CLOSED, OPENED APON RN ENTERING RM. TOLERATING BI-PAP. NO DISTRESS. CALL WILKINS IN REACH.
--- NOTE | 2019-10-28 05:45 | NUR ---
PT REMOVED BI PAP. REQUESTED PAIN MED AND PO FLUIDS. MEDICATED PER JUL. CALL WILKINS IN REACH.
--- NOTE | 2019-10-28 06:15 | NUR ---
PT AWAKE AND ALERT, WATCHING TV. STEVENS EMPTIED OF 650CC RED URINE. URINE IN TUBE IS CLEARING. CALL WILKINS IN REACH. PT ON 02 3L NC PRIOR TO BI PAP.
--- NOTE | 2019-10-28 06:44 | NUR ---
REPORT TO PHIL SIMMS.
--- NOTE | 2019-10-28 07:22 | NUR ---
PT FOUND SLEEPING IN BED. EMPTY JUICE CONTAINER ON CHEST. VSS. WILL CONTINUE TO MONITOR.
--- NOTE | 2019-10-28 08:41 | NUR ---
DR BORDEN @BEDSIDE WITH PT. ASSESSING PT & DISCUSSING TEST RESULTS AND POC
--- NOTE | 2019-10-28 10:00 | NUR ---
PT PLACED ON 3L D/T O2 RATE IN THE 80'S.
--- NOTE | 2019-10-28 10:24 | NUR ---
DR BORDEN NOTIFIED OF BP OF , RETAKE 88/57.
--- NOTE | 2019-10-28 10:35 | NUR ---
PT ON CALLBELL FOR MORE MEDICATION WHEN THIS RN WAS BEDSIDE RECHECKING BP. PT WAS SLEEPING UNTIL SHE HIT CALLLIGHT.
--- NOTE | 2019-10-28 12:29 | NUR ---
PT & FRIEND OF 30+ YEARS UPDATED ON PTS STATUS, POC, & SURGICAL RESULTS. FRIEND ASKED FOR CODE, CODE GIVEN.
--- NOTE | 2019-10-28 14:45 | NUR ---
PT SLEEPING IN BED, NO S/S OF DISTRESS. CALLBELL W/IN REACH. WILL CONTINUE TO MONITOR.
--- NOTE | 2019-10-28 17:04 | NUR ---
COVID19 SWAB COLLECTED ON PT. REHAB NEEDS A COVID TEST RESULT W/IN 48HRS OF ADMISSION.
--- NOTE | 2019-10-28 17:49 | NUR ---
CONFIRMED PT HAS NOT HAD A BM SINCE LAST FRIDAY OR FRIDAY. DR BORDEN NOTIFIED, WAITING ON NEW ORDERS.
--- NOTE | 2019-10-28 17:58 | NUR ---
PT DOES NOT LIKE MEAL SERVED FOR DINNER. CAFETERIA ASKED TO MAKE HER A GRILLED CHEESE SANDWICH INSTEAD.
--- NOTE | 2019-10-28 19:00 | NUR ---
REPORT RECEIVED FROM Carri SUAREZ RN, CARE OF PT ASSUMED @ THIS TIME.
--- NOTE | 2019-10-28 20:15 | NUR ---
PT SLEEPING, APPEARS COMFORTABLE AND IN NO DISTRESS. RESPIRATIONS REGULAR AND UNLABORED. CALL WILKINS WITHIN REACH.
--- NOTE | 2019-10-28 21:55 | NUR ---
UPON ENTERING ROOM PT AWAKE, TALKING ON CELL PHONE. MEDS GIVEN PER MAR. PHYSICAL ASSESMENT COMPLETE. PLAN OF CARE REVIEWED. PT VERBALIZES UNDERSTANDING AND DENIES QUESTIONS. FRESH WATER AND ORANGE JUICE PROVIDED PER PT'S REQUEST. PT DENIES FURTHER NEEDS @ THIS TIME. ITEMS WITHIN REACH. BED LOCKED IN LOW POSITION W/ BEDRAILS UP X2. CALL WILKINS WITHIN REACH, AGREES TO CALL PRN.
--- NOTE | 2019-10-28 22:46 | NUR ---
PT ASSISTED UP TO BSC PER HER REQUEST TO ATTEMPT BM. HANDED PT CALL WILKINS, PT AGREES TO CALL WHEN SHE IS DONE.
--- NOTE | 2019-10-28 23:16 | NUR ---
RT WENT TO OFFER THE PATIENT TO BE PLACED ON BIPAP FOR SLEEPING. PATIENT STATED THAT SHE WILL CALL IF SHE NEEDS IT.
--- NOTE | 2019-10-28 23:43 | NUR ---
ASSISTED BACK TO BED, PT PASSED ONE SMALL HARD MARBLE SIZED BM. PASSING LARGE AMOUNT OF FLATUS. OFFERED PT MIRILAX. PT AGREES, SEE MAR. PARTIAL LINEN CHANGE AND JIMENEZ-CARE COMPLETED. PT NOTED TO HAVE HORIZONTAL LINEAR BRUISE MID GLUTEUS W/ SMALL AREA OF SHEARED SKIN. PT EDUCATED ON OFF LOADING PRESSURE AREAS FREQUENTLY AND RISK OF FRICTION/SHEAR SECONDARY TO REDUCED MOBILITY. PT VERBALIZES UNDERSTANDING. WILL ENDORSE TO ONCOMING SHIFT. CONSIDER BARRIER/ PROTECTIVE OINTMENT W/ NEXT TURN.
[2019-10-29] VITALS (7 sets, daily range): BP systolic 99–132; BP diastolic 46–56
--- NOTE | 2019-10-29 04:20 | NUR ---
CRUSHER LOADER EQUIPMENT OPERATOR NOHEMI @ BEDSIDE DRAWING PTS AM LABS.
[2019-10-29 04:46] LABS: HEMATOCRIT 33.8 % (37.0-47.0); HEMOGLOBIN 10.2 g/dl (12.0-16.0); MEAN CELL VOLUME 94.9 fL CALC (80.0-100.0); MEAN CORPUSCULAR HGB 28.7 pG CALC (26.0-32.0); MEAN CORPUSCULAR HGB CONC 30.2 g/dL CAL (32.0-36.0); RED BLOOD COUNT 3.56 mill/uL (4.20-5.60); RED CELL DISTRI WIDTH 13.6 % (11.5-15.5)
[2019-10-29 05:16] LABS: ALKALINE PHOSPHATASE 73 u/l (38-126); ANION GAP 5 (6-22 (CALC)); BUN 23 mg/dL (8-23); BUN/CREATININE RATIO 22 (12-20 (CALC)); CARBON DIOXIDE 33 mmol/l (22-30); CHLORIDE 104 mmol/l (95-108); GFR 55 ML/MIN (>=60 (CALC)); GFR FOR AFR.AMER. > 60 ML/MIN (>=60 (CALC)); POTASSIUM 4.7 mmol/l (3.5-5.1); SGOT/AST 31 u/l (9-36); SODIUM 138 mmol/l (137-146); TOTAL PROTEIN 5.8 g/dL (6.3-8.2)
[2019-10-29 05:24] LABS: BILIRUBIN, TOTAL 0.3 mg/dL (0.0-1.4)
--- NOTE | 2019-10-29 05:47 | NUR ---
550ML CLOUDY KEITH URINE EMPTIED FROM PTS STEVENS. PT DENIES NEEDS @ THIS TIME. CALL WILKINS REMAINS WITHIN REACH, AGREES TO CALL PRN.
--- NOTE | 2019-10-29 06:45 | NUR ---
REPORT RECEIVED FROM ANTON SIMMS. CARE ASSUMED AT THIS TIME.
--- NOTE | 2019-10-29 07:45 | NUR ---
PT RESTING IN BED AWAKE.PT IS ALERT AND ORIENTED X3. SHIFT ASSESSMENT COMPLETED AT THIS TIME. IV PATENT X1. PT ASSISTED UP CHAIR AT BEDSIDE AT THIS TIME FOR AM MEAL. PT TOLERATED TRANSFER WELL. CALL LIGHT IN REACH. WILL CONTINUE TO MONITOR.
[2019-10-29] MEDS ORDERED: LORTAB5 PO (08:23)
[2019-10-29] MEDS ORDERED: SURFAK240 MG/CAP PO (08:23)
--- NOTE | 2019-10-29 08:38 | NUR ---
DR BORDEN AT BEDSIDE
--- NOTE | 2019-10-29 10:00 | NUR ---
PT SITTING UP IN CHAIR AT BEDSIDE WATCHING TV. RESP ARE EVEN AND UNLABORED. NO DISTRESS NOTED. CALL LIGHT IN REACH. WILL CONTINUE TO MONITOR.
--- NOTE | 2019-10-29 11:23 | NUR ---
PT SET UP FOR NOON MEAL.
--- NOTE | 2019-10-29 12:15 | NUR ---
PT ASSISTED TO BSC FOR GUERITA. RODNEY DC'D AT THIS TIME IN PREPARATION FOR DISCHARGE. RAPID COVID-19 SWAB ORDERED IN PREPARATION FOR DC TO [facility] WELL AWAITING TEST KIT AT THIS TIME. PT AGREEABLE TO BE SWABBED.
--- NOTE | 2019-10-29 12:57 | NUR ---
COVID RAPID TEST OBTAINED AND SENT TO LAB. PT REPORTS URINATING POST STEVENS REMOVAL. PT HAD LARGE BM.
--- NOTE | 2019-10-29 13:25 | NUR ---
PT ASSISTED BACK TO BED AT THIS TIME. PT TOLERATED TRANSFER WELL. CALL LIGHT IN REACH. WILL CONTINUE TO MONITOR.
--- NOTE | 2019-10-29 16:00 | NUR ---
DISCHARGE INSTRUCTIONS REVIEWED WITH PATIENT. PATIENT VERBALIZED UNDERSTANDING. #22 REMOVED FROM MELITA. CATH TIP INTACT. PT TOLERATED WELL. REPORT CALLED TO SIGNATURE AT [phone] SPOKE WITH
--- NOTE | 2019-10-29 16:45 | NUR ---
PT TRANSFERRED TO [facility] VIA TWO PERSON ASSIST. THEN EXITED UNIT WITH [facility].
== END 2019-10-29 16:45 ==
LOC: ED 20:15 → ED-I 23:10 → ED 23:26 → MS2 23:27 → ICU 10-27 18:59 → MS2 10-27 18:59 → ICU 10-27 20:45 → MS2 10-27 20:45 → ICU 10-27 20:45
PROVIDERS: Emergency Medicine; Internal Medicine; Nurse Practitioner Family; ADMIT Internal Medicine; ATTEND Internal Medicine
PROC: BT1D1ZZ Fluoroscopy of Right Kidney, Ureter and Bladder using Low Osmolar Contrast (ICD-10-PCS; principal; 2019-10-27)
PROC: 5A09357 Assistance with Respiratory Ventilation, Less than 24 Consecutive Hours, Continuous Positive Airway Pressure (ICD-10-PCS; 2019-10-27)
DX: M25.551 Pain in right hip (principal); N17.9 Acute kidney failure, unspecified; Z68.42 Body mass index [BMI] 45.0-49.9, adult; G89.4 Chronic pain syndrome; N94.89 Other specified conditions associated with female genital organs and menstrual cycle; N26.1 Atrophy of kidney (terminal); N28.81 Hypertrophy of kidney; N32.89 Other specified disorders of bladder; K59.03 Drug induced constipation; T40.2X5A Adverse effect of other opioids, initial encounter; G47.33 Obstructive sleep apnea (adult) (pediatric); J96.22 Acute and chronic respiratory failure with hypercapnia; J96.21 Acute and chronic respiratory failure with hypoxia; F11.20 Opioid dependence, uncomplicated; E66.01 Morbid (severe) obesity due to excess calories; I10 Essential (primary) hypertension; E78.5 Hyperlipidemia, unspecified; G25.81 Restless legs syndrome; W10.1XXA Fall (on)(from) sidewalk curb, initial encounter; Z98.1 Arthrodesis status; Z96.89 Presence of other specified functional implants; Z91.81 History of falling; Z20.828 Contact with and (suspected) exposure to other viral communicable diseases
CPT/HCPCS: C1769; J1650; Q9967

== ENCOUNTER 2020-02-22 17:01 | Observation (INO) | payer MEDICARE ==
[~2020-02-22] VITALS: Ht 170.2 cm; Wt 127.3 kg
[~2020-02-22 17:01] MED LIST changes: +BUMEX1 M1 PO; +CYCLOBENZAPRINE10 MG PO; +LORTAB5 PO; +SURFAK240 MG/CAP PO; +TIZANIDINE HCL2 MG PO
--- NOTE | 2020-02-22 17:20 | NUR ---
PATIENT TO ROOM VIA WHEELCHAIR IN STABLE CONDITION.
[2020-02-22 17:59] LABS: URINE BILIRUBIN - DIPSTICK NEGATIVE (NEGATIVE); URINE BLOOD DIPSTICK NEGATIVE (NEGATIVE); URINE COLOR YELLOW; URINE GLUCOSE - DIPSTICK NEGATIVE (NEGATIVE); URINE KETONE NEGATIVE (NEGATIVE); URINE NITRITE - DIPSTICK NEGATIVE (Negative); URINE PH 5.5 (4.5-8.0); URINE PROTEIN - DIPSTICK NEGATIVE (NEG-TRACE); URINE SPECIFIC GRAVITY 1.025; URINE UROBILINOGEN - DIPSTICK 0.2 E.U./dL (0.2)
[2020-02-22 18:01] LABS: URINE LEUK ESTERASE SMALL (NEGATIVE)
--- NOTE | 2020-02-22 18:05 | NUR ---
CATHED UA WITH APPROX 150CC OUTPUT TOTAL. ASKED PT IF SHE WAS SURE SHE HAS NOT URINATED TODAY AND SHE SAID SHE MIGHT HAVE WHEN SHE SAT ON [place] AND DIDNT KNOW IT.
[2020-02-22 18:07] LABS: IMMATURE GRANULOCYTES 0.1 % (0.0-5.0); MEAN CORPUSCULAR HGB 27.5 pG CALC (26.0-32.0); MEAN CORPUSCULAR HGB CONC 30.2 g/dL CAL (32.0-36.0); NEUT# 6.56 thou/uL (2.00-7.15); RED BLOOD COUNT 3.89 mill/uL (4.20-5.60); RED CELL DISTRI WIDTH 13.7 % (11.5-15.5)
[2020-02-22 18:08] LABS: HEMATOCRIT 35.4 % (37.0-47.0); HEMOGLOBIN 10.7 g/dl (12.0-16.0)
[2020-02-22 18:13] LABS: URINE RBC 0-2 RBC/hpf (0-5); URINE SQUAMOUS EPITHELIAL CELL FEW EPI/hpf (0-FEW)
[2020-02-22 18:14] LABS: URINE AMORPH SEDIMENT FEW hpf (NONE-FEW)
[2020-02-22 18:21] LABS: ALBUMIN 4.2 g/dL (3.2-5.0); ALKALINE PHOSPHATASE 103 u/l (38-126); ANION GAP 13 (6-22 (CALC)); BILIRUBIN, TOTAL 0.4 mg/dL (0.0-1.4); CHLORIDE 103 mmol/l (95-108); CREATININE 1.9 mg/dL (0.5-1.0); GFR 26 ML/MIN (>=60 (CALC)); GFR FOR AFR.AMER. 32 ML/MIN (>=60 (CALC)); POTASSIUM 3.9 mmol/l (3.5-5.1); SGOT/AST 31 u/l (9-36); SODIUM 140 mmol/l (137-146); TOTAL PROTEIN 8.4 g/dL (6.3-8.2)
[2020-02-22 18:22] LABS: BUN 41 mg/dL (8-23); BUN/CREATININE RATIO 22 (12-20 (CALC)); CARBON DIOXIDE 28 mmol/l (22-30)
[2020-02-22 18:33] LABS: MYOGLOBIN 102 ng/mL (0 - 62)
[2020-02-22] MEDS ORDERED: MORPHINE PUMP (18:58)
--- NOTE | 2020-02-22 19:10 | NUR ---
PT RESTING. TO BEDSIDE TO DISCUSS ADMISSION. ANTIBIOTICS HUNG. MED REC BEING DONE BY GABY.
--- NOTE | 2020-02-22 20:22 | NUR ---
ATTEMPTED TO CALL REPORT.
--- NOTE | 2020-02-22 20:27 | NUR ---
DR PATIÑO CALLED MORPHINE ORDER WAS NOT ENTERED.
--- NOTE | 2020-02-22 20:40 | NUR ---
REPORT TO ELIECER
--- NOTE | 2020-02-22 21:05 | NUR ---
PT RECEIVED FROM ED TO ROOM 277. ARRIVES VIA STRETCHER ACCOMPANIED BY BRIGIDO SIMMS. PT AMBULATORY TO BED. GAIT STEADY AND BALANCED. PT ORIENTED TO UNIT, ROOM, CALL WILKINS, LIGHTS, TV. PROVIDED. PT PROVIDE CLEAR LIQUID SNACKS PER DIET ORDER. PTINSTRUCTED TO CALL WILKINS AND ROOM AMENITIES; VERBALIZES UNDERSTANDING. CALL WILKINS AND POSSESSIONS PLACED WITHIN REACH. AGREES TO CALL PRN.
--- NOTE | 2020-02-22 21:05 | NUR ---
TO MS2 VIA STRETCHER
[2020-02-22 21:15] VITALS: BP 156/53
--- NOTE | 2020-02-22 21:15 | NUR ---
RECEIEVED REPORT FROM ED.VITALS AND ASSESSMENT COMPLETE. INTRODUCED SELF TO PT AND DISCUSSED POC. ASSESSMENT AND VITALS OBATINED; BP 156/53, HR 71, O2 96% ON RA. RESPIRATIONS ARE ENVEN AND UNLABORED. HEART RHYTHM IS NORMAL SINUS RHYTHM WITH A 1 DEGREE BLOCK.BOWEL SOUNDS ARE ACTIVE IN ALL QUADRANTS; LAST REPORTED BM 02/20/20. PT STATES THAT BECAUSE SHE IS ON A PAIN PUMP FOR CHRONIC PAIN THAT SHE FREQUENTLY GOES 3/4 DAYS WITHOUT ABOWEL MOVEMENT. RADIAL AND PEDAL PULSES ARE STRONG WITH NORMAL CPAILLARY REFILL. #20 IN RW RUNNING WITH IVF PER ORDER, SITE APPEARS HEALTHY AND PATENT. PT STATE SHE IS ALWAYS IN A STATE OF CHRONIC PAIN AROUND 5/10. PT STATES THAT SHE HAS AN INTERNAL PAIN PUMP THAT ADMINISTERS MORPHINE. THE PUMP IS MANGED BY A HOME HEALTH AGENCY. PT HAS BEEN PLACED ON A CLEAR LIQUID DIET AND HAS BEEN GIVEN STOOL SOFTNERS TO MANAGE HER CONSTIPATION. CALL WILKINS WAS PLACED WITHIN REACH AND PT STATES SHE WILL CALL FOR ANY NEEDS. WILL CONTINUE TO MONITOR. INTERNAL PAIN PUMP THAT RUNS MORPHINE OF ANY PAIN OR DISCOMFORTS AT THIS TIME. ALL SAFETY AND ISOLATION PRECAUTIONS ARE IN PLACE. WILL CONTINUE TO MONITOR.
--- NOTE | 2020-02-22 21:40 | NUR ---
DEMI WALTON CONTACTED AND REPORTED PTS REFUSAL OF SSE TO DAVID CASTREJON APRN AT 2137, 02/22/20. PT STATES THAT HER NORMAL BOWEL CYCLES ARE 3/4 DAYS GIVEN THAT SHE IS ON A PAIN PUMP THAT ADMINISTERS CONTINUES MORPHINE. SHE STATES THAT SHE MANAGES HER BOWEL WITH STOOL SOFTNERS AND THAT SHE IS REFUSIING A SOAP SUDS ENEMA.
[2020-02-22 23:55] VITALS: BP 118/67
--- NOTE | 2020-02-23 00:01 | NUR ---
PT LAYING IN BED WITH EYES CLOSED, APPEARS TO BE SLEEPING, APPEARS COMFORTABLE AND IN NO DISTRESS. RESPIRATIONS REGULAR AND UNLABORED. ITEMS REMAIN WITHIN REACH, CALL WILKINS REMAINS WITHIN REACH. BED REMAINS LOCKED AND IN LOW POSITION WITH BEDRAILS UP X2. WILL CONTINUE TO MONITOR.
--- NOTE | 2020-02-23 04:01 | NUR ---
PT RESTING IN BED, NO SIGNS OF DISTRESS NOTED, RESP EVEN AND UNLABORED. PT VOICES NO NEEDS OR COMPLAINTS AT THIS TIME. CALL LIGHT IN REACH. WILL CONTINUE TO MONITOR.
[2020-02-23 04:20] VITALS: BP 147/49
[2020-02-23 05:28] LABS: HEMOGLOBIN 9.6 g/dl (12.0-16.0); IMMATURE GRANULOCYTES 0.2 % (0.0-5.0); MEAN CORPUSCULAR HGB 27.9 pG CALC (26.0-32.0); NEUT# 2.97 thou/uL (2.00-7.15); RED BLOOD COUNT 3.44 mill/uL (4.20-5.60); RED CELL DISTRI WIDTH 13.8 % (11.5-15.5)
[2020-02-23 05:48] LABS: BILIRUBIN, TOTAL 0.4 mg/dL (0.0-1.4); C-REACTIVE PROTEIN 1.6 mg/dL (0-0.9); CREATININE 1.4 mg/dL (0.5-1.0)
[2020-02-23 05:50] LABS: ALBUMIN 3.2 g/dL (3.2-5.0); TOTAL PROTEIN 6.4 g/dL (6.3-8.2)
--- NOTE | 2020-02-23 07:00 | NUR ---
REPORT RECEIVED FROM DEMI GONZÁLES. PT RESTING IN BED SEMI FOWLERS; AWAKE, ALERT, AND ORIENTED. C/O 10/10 PAIN TO LOWER AND UPPER BACK; STATES THAT INTERNAL MORPHINE PUMP IS NOT SUFFICIENT FOR NEW PAIN ACROSS UPPER BACK AND REQUESTS PAIN MEDICATION. RESPIRATIONS EVEN AND UNLABORED ON ROOM AIR. SOAP AMELIA ENEMA OFFERED FOR DX OF FECAL IMPACTION; PT REPORTS THAT SHE HAS NOT HAD A BOWEL MOVEMENT IN 4 DAYS, BUT THIS IS NORMAL FOR HER AND SHE WILL PROBABLY HAVE ONE DAY WITHOUT MEDICATION. IV FLUIDS INFUSING WITHOUT DIFFICULTY; IV SITE APPEARS HEATLHY. PLAN OF CARE REVIEWED. PT ENCOUAGED TO VERBALIZE CONCERNS. STATES UNDERSTANDING. SAFETY MEASURES IN PLACE. CALL LIGHT WITHIN REACH.
[2020-02-23 07:32] VITALS: BP 111/61
--- NOTE | 2020-02-23 08:50 | NUR ---
DR. BORDEN AT BEDSIDE. PT AGAIN REQUESTING PAIN MEDICATION.
--- NOTE | 2020-02-23 10:24 | NUR ---
NEW ORDERS RECEIVED; PT GIVEN MORPHINE FOR 10/10 BREAKTHROUGH BACK PAIN. DIET ADVANCED TO 2GM REGULAR DIET; PT GIVEN MAG CITRATE TO DRINK FOR NO BM IN 6 DAYS.
--- NOTE | 2020-02-23 10:31 | NUR ---
PT SCREENED FOR PT INTERVENTION. PT WOULD BENEFIT FROM PT EVALUATION IF MEDICAL AGREES.
[2020-02-23 15:00] VITALS: BP 111/62
[2020-02-23 19:00] VITALS: BP 118/66
--- NOTE | 2020-02-23 19:30 | NUR ---
PT RESTING IN BED WATCHING TV, NO SIGNS OF DISTRESS NOTED, RESP EVEN AND UNLABORED. DISCUSSED POC, PT MEDICATED PER MAR. STATES SHE HAS NOT HAD A BM AFTER MAG CITRATE. DISCUSSED MOM AND PRUNE JUICE, VERBALIZED UNDERSTANDING. ASSESSMENT COMPLETED, CALL LIGHT IN REACH,CONTINUE TO MONITOR.
--- NOTE | 2020-02-23 22:10 | NUR ---
PT RESTING IN BED, NO SIGNS OF DISTRESS NOTED, RESP EVEN AND UNLABORED. PT C/O SWELLING TO IV SITE, NOTED INFILTRATED. IV SITE REMOVED, CATHETER INTACT. NEW IV SITE OBTAINED TO LW, PT TOLERATED WELL. PT MEDICATED FOR PAIN, CALL LIGHT IN REACH,CONTINUE TO MONITOR.
[2020-02-24] VITALS (7 sets, daily range): BP systolic 118–148; BP diastolic 52–75
--- NOTE | 2020-02-24 01:29 | NUR ---
PT RESTING IN BED WATCHING TV, PT REQUESTING MUSCLE RELAXER. CALL LIGHT IN REACH,CONTINUE TO MONITOR.
--- NOTE | 2020-02-24 03:34 | NUR ---
PT RESTING IN BED. C/O PAIN /, PT MEDICATED WITH MORPHINE, CALL LIGHT IN REACH,CONTINUE TO MONITOR.
[2020-02-24 05:44] LABS: HEMATOCRIT 34.4 % (37.0-47.0); HEMOGLOBIN 10.3 g/dl (12.0-16.0); MEAN CELL VOLUME 93.2 fL CALC (80.0-100.0); MEAN CORPUSCULAR HGB 27.9 pG CALC (26.0-32.0); MEAN CORPUSCULAR HGB CONC 29.9 g/dL CAL (32.0-36.0); RED BLOOD COUNT 3.69 mill/uL (4.20-5.60); RED CELL DISTRI WIDTH 13.7 % (11.5-15.5)
[2020-02-24 06:05] LABS: ALBUMIN 3.2 g/dL (3.2-5.0); CREATININE 1.3 mg/dL (0.5-1.0); POTASSIUM 4.7 mmol/l (3.5-5.1); TOTAL PROTEIN 6.5 g/dL (6.3-8.2)
[2020-02-24 06:10] LABS: BILIRUBIN, TOTAL 0.2 mg/dL (0.0-1.4)
--- NOTE | 2020-02-24 06:40 | NUR ---
REPORT RECEIVED FROM EDOUARD GIBSON. PT RESTING IN BED. NO S/S OF DISTRESS AT THIS TIME. SAFETY PRECAUTIONS IN PLACE. WILL CONTINUE TO MONITOR.
--- NOTE | 2020-02-24 07:56 | NUR ---
PT RESTING IN BED ALERT AND ORIENTED. RESPIRATIONS EVEN AND UNLABORED ON RA. LUNGS SOUND CLEAR. PEDAL PULSES ARE WEAK. PT REPORTS PAIN BEING A 9/10 IN BACK. PT EDUCATED ON PAIN MED SCHEDULE. #22 LW PATENT AND APPEARS HEALTHY. SAFEYT PRECAUTIONS IN PLACE. WILL CONTINUE TO MONITOR.
--- NOTE | 2020-02-24 08:51 | NUR ---
, MAEVE MOTA AND CASH AT BEDSIDE
--- NOTE | 2020-02-24 11:26 | NUR ---
ATTEMPTED TO SEE PATIENT FOR PT EVALUATION. PT REFUSED SHE JUST HAD AN ENEMA. WILL REVISIT LATER THIS AFTERNOON.
--- NOTE | 2020-02-24 12:15 | NUR ---
PT SITTING ON THE BSC, ASSISTED PT BACK TO BED PER REQUEST, AFTER PROVIDING JIMENEZ CARE. PT HAD A LARGE BOWEL MOVEMENT AT THIS TIME.
--- NOTE | 2020-02-24 16:15 | NUR ---
PT RESTING IN BED, NO S/S OF DISTRESS AT THIS TIME. WILL CONTINUE TO MONITOR.
--- NOTE | 2020-02-24 19:48 | NUR ---
PT AWAKE, LOW FOWLERS IN BE TALKING ON CELL PHONE. SHE HUNG UP PHONE I WALKED IN, PT ASKED FOR ASSISTANCE AMBULATING TO BSC/PROVIDED, TOLERATED WELL. PT DENIES ANY OTHER NEEDS AT THIS TIME. CALL LIGHT LEFT W/IN REACH OF PT.
--- NOTE | 2020-02-24 20:55 | NUR ---
PT APPEARS TO BE SLEEPING AT THIS TIME. NO S/O DISTRESS NOTED. CALL LIGHT AT BEDSIDE.
--- NOTE | 2020-02-25 00:22 | NUR ---
PT SLEEPING, NO S/O DISTRESS NOTED AT THIS TIME. CALL LIGHT W/IN REACH.
[2020-02-25 04:30] VITALS: BP 156/80
--- NOTE | 2020-02-25 05:09 | NUR ---
PT MEDICATED ORDERS PROVIDE NO S/O DISTRESS NOTED. PT MEDICATED FOR PAIN 8/10 ON PAIN SCALE. TV ON PT WATCHING TV.
--- NOTE | 2020-02-25 06:50 | NUR ---
REPORT RECEIVED FROM DEMI BUENROSTRO. PT RESTING IN BED. NO S/S OF DISTRESS AT THIS TIME. SAFETY PRECAUTIONS IN PLACE. WILL CONTINUE TO MONITOR.
--- NOTE | 2020-02-25 08:45 | NUR ---
AND MAEVE MOTA AT THE BEDSIDE.
[2020-02-25 09:12] LABS: CREATININE 1.1 mg/dL (0.5-1.0); POTASSIUM 3.9 mmol/l (3.5-5.1)
[2020-02-25 09:14] VITALS: BP 125/56
--- NOTE | 2020-02-25 09:14 | NUR ---
PT RESTING IN BED, ALERT AND ORIETNED. RESPIRATIONS ARE EVEN AND UNLABORED ON RA. LUNGS SOUND CLEAR. PEDAL PULSES ARE STRONG. PT REPORTS PAIN BEING OF A 8/10. PT EDUCATED ON PAIN MED SCHEDULE. SAFETY PRECAUTIONS IN PLACE. WILL CONTINEU TO MONITOR.
--- NOTE | 2020-02-25 10:10 | NUR ---
PT SITTING UP ON THE SIDE OF THE BED, GETTING DRESSED. PT REPORTS HAVING A BM IN THE BSC. LARGE SOFT BROWN BM NOTED. PT DENIES ANY NEEDS AT THIS TIME. SAFETY PRECAUTIONS IN PLACE. WILL CONTINUE TO MONITOR.
[2020-02-25] MEDS ORDERED: MIRALAX MIX-IN17 GM PO (10:26)
[2020-02-25] MEDS ORDERED: PREDNISONE20 MG PO (10:29)
[2020-02-25 10:50] VITALS: BP 125/45
--- NOTE | 2020-02-25 11:06 | NUR ---
PT PROVIDED WITH DISCHARGE PACKET AND PRESCRIPTIONS. PT DENIES ANY QUESTIONS OR CONCERNS AT THIS TIME. IV # 20 LW REMOVED, CATHETER INTACT.
--- NOTE | 2020-02-25 11:53 | NUR ---
Discharge instructions given. Patient verbalizes understanding of same. Discharged in stable condition via Wheelchair to Home with staff. All belongings sent with pt.
== END 2020-02-25 11:53 | disposition home health service (06) ==
LOC: ED 17:01 → MS2 19:04
PROVIDERS: Emergency Medicine; Nurse Practitioner; Nurse Practitioner Family; ADMIT Internal Medicine; ATTEND Internal Medicine
DX: K56.41 Fecal impaction (principal); N39.0 Urinary tract infection, site not specified; E86.0 Dehydration; I10 Essential (primary) hypertension; F32.9 Major depressive disorder, single episode, unspecified; Z68.41 Body mass index [BMI] 40.0-44.9, adult; E78.5 Hyperlipidemia, unspecified; G47.33 Obstructive sleep apnea (adult) (pediatric); E66.2 Morbid (severe) obesity with alveolar hypoventilation; G40.909 Epilepsy, unspecified, not intractable, without status epilepticus; F11.20 Opioid dependence, uncomplicated; M35.3 Polymyalgia rheumatica; Z96.89 Presence of other specified functional implants; Z20.828 Contact with and (suspected) exposure to other viral communicable diseases

== ENCOUNTER 2020-03-25 16:26 | Emergency (ER) | payer MEDICARE ==
[~2020-03-25] VITALS: Ht 170.2 cm; Wt 113.6 kg
[~2020-03-25 16:26] MED LIST changes: +MIRALAX MIX-IN17 GM PO; +MORPHINE PUMP; +PREDNISONE20 MG PO
[2020-03-25 17:47] LABS: HEMATOCRIT 36.6 % (37.0-47.0); HEMOGLOBIN 10.8 g/dl (12.0-16.0); IMMATURE GRANULOCYTES 0.8 % (0.0-5.0); MEAN CELL VOLUME 95.6 fL CALC (80.0-100.0); MEAN CORPUSCULAR HGB 28.2 pG CALC (26.0-32.0); MEAN CORPUSCULAR HGB CONC 29.5 g/dL CAL (32.0-36.0); NEUT# 8.62 thou/uL (2.00-7.15); RED BLOOD COUNT 3.83 mill/uL (4.20-5.60); RED CELL DISTRI WIDTH 14.6 % (11.5-15.5)
[2020-03-25 18:09] LABS: ACT PARTIAL THROMBO TIME 20.5 SECONDS (20.0-32.5); PROTHROMBIN TIME 9.7 SECONDS (9.0-12.5)
[2020-03-25 18:19] LABS: ALBUMIN 3.8 g/dL (3.2-5.0); BILIRUBIN, TOTAL 0.3 mg/dL (0.0-1.4); CREATININE 1.1 mg/dL (0.5-1.0); POTASSIUM 4.6 mmol/l (3.5-5.1)
[2020-03-25 21:38] VITALS: BP 120/58
== END 2020-03-25 21:38 ==
LOC: ED 16:26
DX: S72.402A Unspecified fracture of lower end of left femur, initial encounter for closed fracture (principal); I10 Essential (primary) hypertension; F32.9 Major depressive disorder, single episode, unspecified; E66.01 Morbid (severe) obesity due to excess calories; W01.0XXA Fall on same level from slipping, tripping and stumbling without subsequent striking against object, initial encounter; Y92.009 Unspecified place in unspecified non-institutional (private) residence as the place of occurrence of the external cause; Z96.652 Presence of left artificial knee joint
CPT/HCPCS: L1830

== ENCOUNTER 2020-05-11 13:51 | Inpatient (IN) | payer MEDICARE ==
[~2020-05-11] VITALS: Ht 170.2 cm; Wt 114.0 kg
[2020-05-11 15:46] LABS: HEMATOCRIT 36.7 % (37.0-47.0); HEMOGLOBIN 10.9 g/dl (12.0-16.0); IMMATURE GRANULOCYTES 0.5 % (0.0-5.0); MEAN CELL VOLUME 92.9 fL CALC (80.0-100.0); MEAN CORPUSCULAR HGB 27.6 pG CALC (26.0-32.0); MEAN CORPUSCULAR HGB CONC 29.7 g/dL CAL (32.0-36.0); NEUT# 5.99 thou/uL (2.00-7.15); RED BLOOD COUNT 3.95 mill/uL (4.20-5.60); RED CELL DISTRI WIDTH 14.6 % (11.5-15.5)
[2020-05-11 16:01] LABS: ALBUMIN 3.9 g/dL (3.2-5.0); CREATININE 1.1 mg/dL (0.5-1.0); POTASSIUM 3.7 mmol/l (3.5-5.1); TOTAL PROTEIN 7.3 g/dL (6.3-8.2)
[2020-05-11 16:10] LABS: BILIRUBIN, TOTAL 0.8 mg/dL (0.0-1.4)
[2020-05-11 16:18] LABS: ACT PARTIAL THROMBO TIME 23.9 SECONDS (20.0-32.5); INTERNATIONAL NORMALIZED RATIO 1.1 RATIO (0.7-1.3); PROTHROMBIN TIME 11.2 SECONDS (9.0-12.5)
[2020-05-11 20:15] VITALS: BP 135/55
[2020-05-11 20:31] LABS: URINE BILIRUBIN - DIPSTICK NEGATIVE (NEGATIVE); URINE BLOOD DIPSTICK NEGATIVE (NEGATIVE); URINE COLOR YELLOW; URINE GLUCOSE - DIPSTICK NEGATIVE (NEGATIVE); URINE KETONE NEGATIVE (NEGATIVE); URINE LEUK ESTERASE NEGATIVE (NEGATIVE); URINE NITRITE - DIPSTICK NEGATIVE (Negative); URINE PH 5.5 (4.5-8.0); URINE PROTEIN - DIPSTICK NEGATIVE (NEG-TRACE)
[2020-05-11 23:45] VITALS: BP 129/53
[2020-05-12 04:00] VITALS: BP 121/86
[2020-05-12 05:37] LABS: HEMOGLOBIN 10.9 g/dl (12.0-16.0); IMMATURE GRANULOCYTES 0.7 % (0.0-5.0); MEAN CELL VOLUME 93.9 fL CALC (80.0-100.0); MEAN CORPUSCULAR HGB 27.7 pG CALC (26.0-32.0); MEAN CORPUSCULAR HGB CONC 29.5 g/dL CAL (32.0-36.0); NEUT# 3.2 thou/uL (2.00-7.15); RED BLOOD COUNT 3.94 mill/uL (4.20-5.60); RED CELL DISTRI WIDTH 14.5 % (11.5-15.5)
[2020-05-12 05:54] LABS: ANION GAP 11 (6-22 (CALC)); BUN 20 mg/dL (8-23); BUN/CREATININE RATIO 21 (12-20 (CALC)); C-REACTIVE PROTEIN 1.2 mg/dL (0-0.9); CARBON DIOXIDE 29 mmol/l (22-30); CHLORIDE 107 mmol/l (95-108); CREATININE 0.9 mg/dL (0.5-1.0); GFR > 60 ML/MIN (>=60 (CALC)); GFR FOR AFR.AMER. > 60 ML/MIN (>=60 (CALC)); POTASSIUM 4.4 mmol/l (3.5-5.1); SODIUM 142 mmol/l (137-146)
[2020-05-12 08:00] VITALS: BP 132/56
[2020-05-12 11:28] VITALS: BP 123/73
[2020-05-12 15:25] VITALS: BP 128/62
[2020-05-12 19:20] VITALS: BP 124/54
[2020-05-13 00:03] VITALS: BP 131/61
[2020-05-13 04:05] VITALS: BP 143/67
[2020-05-13 08:23] VITALS: BP 143/46
[2020-05-13 10:49] VITALS: BP 146/46
[2020-05-13 10:59] LABS: HEMATOCRIT 37.4 % (37.0-47.0); HEMOGLOBIN 10.8 g/dl (12.0-16.0); IMMATURE GRANULOCYTES 0.4 % (0.0-5.0); MEAN CELL VOLUME 95.7 fL CALC (80.0-100.0); MEAN CORPUSCULAR HGB 27.6 pG CALC (26.0-32.0); MEAN CORPUSCULAR HGB CONC 28.9 g/dL CAL (32.0-36.0); NEUT# 5.82 thou/uL (2.00-7.15); RED BLOOD COUNT 3.91 mill/uL (4.20-5.60); RED CELL DISTRI WIDTH 14.6 % (11.5-15.5)
[2020-05-13 11:32] LABS: ALBUMIN 3.4 g/dL (3.2-5.0); ALKALINE PHOSPHATASE 127 u/l (38-126); ANION GAP 8 (6-22 (CALC)); BUN 16 mg/dL (8-23); BUN/CREATININE RATIO 22 (12-20 (CALC)); CARBON DIOXIDE 30 mmol/l (22-30); CHLORIDE 108 mmol/l (95-108); CREATININE 0.7 mg/dL (0.5-1.0); GFR > 60 ML/MIN (>=60 (CALC)); GFR FOR AFR.AMER. > 60 ML/MIN (>=60 (CALC)); POTASSIUM 4.8 mmol/l (3.5-5.1); SGOT/AST 29 u/l (9-36); SODIUM 141 mmol/l (137-146); TOTAL PROTEIN 6.3 g/dL (6.3-8.2)
[2020-05-13 11:34] LABS: BILIRUBIN, TOTAL 0.4 mg/dL (0.0-1.4)
[2020-05-13 15:20] VITALS: BP 132/50
[2020-05-13 19:40] VITALS: BP 156/75
[2020-05-14 00:05] VITALS: BP 156/75
[2020-05-14 01:06] VITALS: BP 157/72
[2020-05-14 04:00] VITALS: BP 142/65
[2020-05-14 05:14] LABS: HEMATOCRIT 37.9 % (37.0-47.0); HEMOGLOBIN 10.8 g/dl (12.0-16.0); IMMATURE GRANULOCYTES 0.3 % (0.0-5.0); MEAN CELL VOLUME 95.2 fL CALC (80.0-100.0); MEAN CORPUSCULAR HGB 27.1 pG CALC (26.0-32.0); MEAN CORPUSCULAR HGB CONC 28.5 g/dL CAL (32.0-36.0); NEUT# 4.41 thou/uL (2.00-7.15); RED BLOOD COUNT 3.98 mill/uL (4.20-5.60); RED CELL DISTRI WIDTH 14.6 % (11.5-15.5)
[2020-05-14 05:44] LABS: ANION GAP 11 (6-22 (CALC)); BUN 16 mg/dL (8-23); BUN/CREATININE RATIO 21 (12-20 (CALC)); C-REACTIVE PROTEIN 0.5 mg/dL (0-0.9); CARBON DIOXIDE 31 mmol/l (22-30); CHLORIDE 107 mmol/l (95-108); CREATININE 0.7 mg/dL (0.5-1.0); GFR > 60 ML/MIN (>=60 (CALC)); GFR FOR AFR.AMER. > 60 ML/MIN (>=60 (CALC)); POTASSIUM 5.1 mmol/l (3.5-5.1); SODIUM 143 mmol/l (137-146)
[2020-05-14 10:45] VITALS: BP 130/64
[2020-05-14 16:00] VITALS: BP 130/52
[2020-05-14 20:00] VITALS: BP 149/69
[2020-05-15] VITALS: BP 143/65
[2020-05-15 04:00] VITALS: BP 151/64
[2020-05-15 07:53] VITALS: BP 162/65
[2020-05-15 10:30] VITALS: BP 157/68
[2020-05-15 16:00] VITALS: BP 136/82
[2020-05-15 19:00] VITALS: BP 158/70
[2020-05-16] VITALS: BP 152/66; BP 177/90
[2020-05-16 04:00] VITALS: BP 146/67
[2020-05-16 05:51] LABS: HEMATOCRIT 35.9 % (37.0-47.0); HEMOGLOBIN 10.6 g/dl (12.0-16.0); IMMATURE GRANULOCYTES 0.2 % (0.0-5.0); MEAN CELL VOLUME 94.5 fL CALC (80.0-100.0); MEAN CORPUSCULAR HGB 27.9 pG CALC (26.0-32.0); MEAN CORPUSCULAR HGB CONC 29.5 g/dL CAL (32.0-36.0); NEUT# 3.44 thou/uL (2.00-7.15); RED BLOOD COUNT 3.8 mill/uL (4.20-5.60); RED CELL DISTRI WIDTH 14.5 % (11.5-15.5)
[2020-05-16 06:20] LABS: ALBUMIN 3.2 g/dL (3.2-5.0); ALKALINE PHOSPHATASE 99 u/l (38-126); ANION GAP 8 (6-22 (CALC)); BUN 13 mg/dL (8-23); BUN/CREATININE RATIO 18 (12-20 (CALC)); C-REACTIVE PROTEIN < 0.5 mg/dL (0-0.9); CARBON DIOXIDE 30 mmol/l (22-30); CHLORIDE 109 mmol/l (95-108); CREATININE 0.7 mg/dL (0.5-1.0); GFR > 60 ML/MIN (>=60 (CALC)); GFR FOR AFR.AMER. > 60 ML/MIN (>=60 (CALC)); POTASSIUM 4.4 mmol/l (3.5-5.1); SGOT/AST 34 u/l (9-36); SODIUM 142 mmol/l (137-146); TOTAL PROTEIN 5.9 g/dL (6.3-8.2)
[2020-05-16 06:21] LABS: BILIRUBIN, TOTAL 0.2 mg/dL (0.0-1.4)
[2020-05-16 07:39] VITALS: BP 142/63
[2020-05-16 10:30] VITALS: BP 151/75
[2020-05-16 15:00] VITALS: BP 156/65
[2020-05-16 19:00] VITALS: BP 157/87
[2020-05-17] VITALS: BP 162/69
[2020-05-17 04:00] VITALS: BP 178/96
[2020-05-17 06:26] LABS: HEMATOCRIT 37.1 % (37.0-47.0); HEMOGLOBIN 10.7 g/dl (12.0-16.0); MEAN CELL VOLUME 94.6 fL CALC (80.0-100.0); MEAN CORPUSCULAR HGB 27.3 pG CALC (26.0-32.0); MEAN CORPUSCULAR HGB CONC 28.8 g/dL CAL (32.0-36.0); RED BLOOD COUNT 3.92 mill/uL (4.20-5.60); RED CELL DISTRI WIDTH 14.5 % (11.5-15.5)
[2020-05-17 06:57] LABS: ANION GAP 10 (6-22 (CALC)); BUN 11 mg/dL (8-23); BUN/CREATININE RATIO 16 (12-20 (CALC)); CARBON DIOXIDE 29 mmol/l (22-30); CHLORIDE 108 mmol/l (95-108); CREATININE 0.7 mg/dL (0.5-1.0); GFR > 60 ML/MIN (>=60 (CALC)); GFR FOR AFR.AMER. > 60 ML/MIN (>=60 (CALC)); POTASSIUM 4.2 mmol/l (3.5-5.1); SODIUM 142 mmol/l (137-146)
[2020-05-17 08:20] VITALS: BP 125/63
[2020-05-17 11:00] VITALS: BP 156/67
[2020-05-17 15:00] VITALS: BP 136/74
[2020-05-17 19:00] VITALS: BP 147/69
[2020-05-18 04:00] VITALS: BP 181/62
[2020-05-18 06:05] LABS: HEMATOCRIT 36.2 % (37.0-47.0); HEMOGLOBIN 10.5 g/dl (12.0-16.0); IMMATURE GRANULOCYTES 0.3 % (0.0-5.0); MEAN CORPUSCULAR HGB 27.6 pG CALC (26.0-32.0); NEUT# 3.25 thou/uL (2.00-7.15); RED BLOOD COUNT 3.81 mill/uL (4.20-5.60); RED CELL DISTRI WIDTH 14.5 % (11.5-15.5)
[2020-05-18 06:30] LABS: ALBUMIN 3.4 g/dL (3.2-5.0); ALKALINE PHOSPHATASE 92 u/l (38-126); ANION GAP 9 (6-22 (CALC)); BUN 11 mg/dL (8-23); BUN/CREATININE RATIO 17 (12-20 (CALC)); C-REACTIVE PROTEIN < 0.5 mg/dL (0-0.9); CARBON DIOXIDE 28 mmol/l (22-30); CHLORIDE 109 mmol/l (95-108); CREATININE 0.6 mg/dL (0.5-1.0); GFR > 60 ML/MIN (>=60 (CALC)); GFR FOR AFR.AMER. > 60 ML/MIN (>=60 (CALC)); SGOT/AST 45 u/l (9-36); SODIUM 141 mmol/l (137-146); TOTAL PROTEIN 6.3 g/dL (6.3-8.2)
[2020-05-18 06:31] LABS: BILIRUBIN, TOTAL 0.5 mg/dL (0.0-1.4)
[2020-05-18 08:19] VITALS: BP 176/86
[2020-05-18] MEDS ORDERED: DEXAMETHASON6 MG PO (11:05)
[2020-05-18] MEDS ORDERED: ZITHROMAX250 MG PO (11:05)
[2020-05-18] MEDS ORDERED: LORTAB5 PO (11:07)
== END 2020-05-18 15:40 | DRG 177 ==
LOC: ED 13:51 → ICU 17:17 → MS2 17:17
PROVIDERS: Nurse Practitioner; Physician Assistant; ADMIT Internal Medicine; ATTEND Internal Medicine
PROC: XW033E5 Introduction of Remdesivir Anti-infective into Peripheral Vein, Percutaneous Approach, New Technology Group 5 (ICD-10-PCS; principal; 2020-05-12)
DX: U07.1 COVID-19 (principal); J12.82 Pneumonia due to coronavirus disease 2019; I26.99 Other pulmonary embolism without acute cor pulmonale; J96.91 Respiratory failure, unspecified with hypoxia; E66.2 Morbid (severe) obesity with alveolar hypoventilation; R42 Dizziness and giddiness; R68.83 Chills (without fever); R63.0 Anorexia; R53.1 Weakness; K59.03 Drug induced constipation; T40.2X5A Adverse effect of other opioids, initial encounter; I10 Essential (primary) hypertension; R32 Unspecified urinary incontinence; L98.8 Other specified disorders of the skin and subcutaneous tissue; E78.5 Hyperlipidemia, unspecified; F32.9 Major depressive disorder, single episode, unspecified; G40.909 Epilepsy, unspecified, not intractable, without status epilepticus; G25.81 Restless legs syndrome; M19.90 Unspecified osteoarthritis, unspecified site; G89.4 Chronic pain syndrome; Z68.39 Body mass index [BMI] 39.0-39.9, adult; Z79.891 Long term (current) use of opiate analgesic; Z96.89 Presence of other specified functional implants
CPT/HCPCS: J1650; Q9967

== ENCOUNTER 2020-06-07 18:14 | Inpatient (IN) | payer MEDICARE ==
[~2020-06-07] VITALS: Ht 170.2 cm; Wt 113.0 kg
[~2020-06-07 18:14] MED LIST changes: +DEXAMETHASON6 MG PO; +ZITHROMAX250 MG PO
--- NOTE | 2020-06-07 18:20 | NUR ---
PT WHEELED TO ROOM # 14 FOR BEDSIDE TRIAGE.
--- NOTE | 2020-06-07 19:15 | NUR ---
IV ESTABLISHED WITH BLOOD AND BLOOD CULTURES OBTAINED. PT TOLERATED WELL. COLLISION REPAIRER IN PLACE. CALL LIGHT PROVIDED.
[2020-06-07 19:51] LABS: HEMATOCRIT 36.6 % (37.0-47.0); HEMOGLOBIN 10.7 g/dl (12.0-16.0); IMMATURE GRANULOCYTES 0.2 % (0.0-5.0); MEAN CELL VOLUME 94.6 fL CALC (80.0-100.0); MEAN CORPUSCULAR HGB 27.6 pG CALC (26.0-32.0); MEAN CORPUSCULAR HGB CONC 29.2 g/dL CAL (32.0-36.0); NEUT# 2.56 thou/uL (2.00-7.15); RED BLOOD COUNT 3.87 mill/uL (4.20-5.60); RED CELL DISTRI WIDTH 14.6 % (11.5-15.5)
[2020-06-07 20:13] LABS: ALBUMIN 3.9 g/dL (3.2-5.0); ALKALINE PHOSPHATASE 128 u/l (38-126); ANION GAP 9 (6-22 (CALC)); BILIRUBIN, TOTAL 0.4 mg/dL (0.0-1.4); BUN 25 mg/dL (8-23); BUN/CREATININE RATIO 23 (12-20 (CALC)); C-REACTIVE PROTEIN 0.9 mg/dL (0-0.9); CARBON DIOXIDE 32 mmol/l (22-30); CHLORIDE 102 mmol/l (95-108); CREATININE 1.1 mg/dL (0.5-1.0); GFR 49 ML/MIN (>=60 (CALC)); GFR FOR AFR.AMER. 60 ML/MIN (>=60 (CALC)); LIPASE 69 u/l (23-300); POTASSIUM 4.9 mmol/l (3.5-5.1); SGOT/AST 30 u/l (9-36); SODIUM 138 mmol/l (137-146); TOTAL PROTEIN 7.2 g/dL (6.3-8.2)
--- NOTE | 2020-06-07 20:35 | NUR ---
PT MEDICATED PER EDP ORDER. TOLERATED ADMINISTRATION WELL. ADVISED PT PLAN OF CARE AND WAIT TIME FOR RESULTS. VERBALIZED UNDERSTANDING. BLANKET AND PILLOW PROVIDED PER REQUEST. OVERLOCK HEMMER IN PLACE. CALL LIGHT WITHIN REACH.
--- NOTE | 2020-06-07 21:00 | NUR ---
PT RESTING ON STRETCHER IN NO APPARENT DISTRESS. RESP EVEN AND UNALBRED. SKIN WARM AND DRY. MAEW. DENIES ANY NEEDS AT THIS TIME. CUPOLA CHARGER IN PLACE. IV SITE PATENT WITH NO REDNESS, SWELLING WARMTH. CALL LIGHT WITHIN REACH.
--- NOTE | 2020-06-07 22:00 | NUR ---
PT REQUESTING BLANKET AND PROVIDED. ATTEMPT FOR IV AC ACCESS FOR CTA CHEST.
--- NOTE | 2020-06-07 22:30 | NUR ---
PT C/O DIZZINESS AND NAUSEA. DR LOVE NOTIFIED OF STATED COMPLAINT AND ORDER RECEIVED FOR PHENERGAN IV.
--- NOTE | 2020-06-07 23:00 | NUR ---
PT REPORTS RELIEF FROM PHENERGAN WITH DIZZINESS MINIMALLY SUBSIDING. LIGHTS WERE DIMMED FOR COMFORT. DEPENDENCY PROGRAM DIRECTOR IN PLACE. O2 @ 2L VIA NC.
--- NOTE | 2020-06-07 23:13 | NUR ---
PT TO CT VIA WC IN STABLE CONDITION.
--- NOTE | 2020-06-08 00:15 | NUR ---
PT RESTING ON STRETCHER. REQUESTED TO BE REPOSITIONED IN BED. IV VANCOMYCIN COMPLETED AT THIS TIME. DENIES ANY NEEDS. CALL LIGHT WITHIN REACH. ASTRO TECHNICIAN IN PLACE.
[2020-06-08] MEDS ORDERED: LORTAB 1010 MG PO (00:54)
--- NOTE | 2020-06-08 01:45 | NUR ---
REPORT GIGVEN TO EDOUARD SKINNER ON [employer].
--- NOTE | 2020-06-08 02:00 | NUR ---
Admission Note Report Given to: EDOUARD SKINNER Transported by: Wheelchair X Stretcher Transported with: X Nurse Transporter X Patent IV X O2 Corn Crop Supervisor Location: ICU X [facility]2 PT TRANSPORTED TO [place] IN STABLE CONDITION. [place] NURSE BEDSIDE.
[2020-06-08 02:10] VITALS: BP 113/63
[2020-06-08 05:00] VITALS: BP 104/59
--- NOTE | 2020-06-08 05:36 | NUR ---
pT ARRIVED ON FLOOR AT APPROXIMATLY 0210. pT WAS ASHLIE TO TRANSFER HERSSELF FROM THE [facility] TO THE UNIT BED WITH MINIMAL ASSIST, PT USES A CANE AT HOME. PT WAS ADMITTED IN TH ER FOR PNEUMONIA, COPD EXACERBATION. UPPER LOBES ARE CTA, R MIDDLE AND LOWER LOBES ARE DIMINSHED. ABDOMEN SOFT AND NON-TENDER, BS ACTIVE X 4 QUADS. SKIN IS INTACT, CLEAN AND WARM. PT IS RECEIVING IV ABT, MAXIPIME AND VACOMYCIN, SO FAR THE PT IS NOT DISPLAYING ANY COMPLICATIONS RELATED TO ABT. TWO PERIPHERAL SITES PLACED IN ER, # 22 LEFT HAND AND # 20 RAC, BOTH FLUSH EASILY. PT TESTED FOR COVID IN THE ER, RESULTS NEGATIVE. AT THIS TIME PT IS RESTING QUIETLY IN BED WITH HER EYES CLOSED. CALL LIGHT WITHIN REACH. WILL MONITOR
--- NOTE | 2020-06-08 10:10 | NUR ---
PATIENT IS TEARFUL AND AWAKE. COMPLAINS OF PAIN IN LEGS. VITALS TAKEN AND RECOREDED
--- NOTE | 2020-06-08 11:19 | NUR ---
Patient is screened for PT intervention and no needs are identified at this time
--- NOTE | 2020-06-08 11:32 | NUR ---
S: ELIZABETH HOGUE is a 69 F who presents with pneumonia. She has a history of hypertension, dyslipidemia, sleep apnea, seizures, RLS, and osteoarthritis. All medications in patient's chart were reviewed. O: VS: BP 104/59 mmHg, P 73 bpm, RR 21 breaths/min, T 97.8 F W 113 kg, HT 67 in, Scr 1.1 mg/dl, CrCl 63 ml/min A: Blood culture is pending. P: Patient is on cefepime 2 g IV Q8H. Vancomycin ordered for pharmacy to dose. Start Vancomycin 1 g IV Q12H. Vancomycin trough is drawn before the 4th dose on 06/09/20 @1030. Vancomycin goal trough is between 15-20 mcg/ml. Pharmacy will follow and or advise on antibiotics use as needed.
--- NOTE | 2020-06-08 12:00 | NUR ---
PATIENT VOICES CONCERNS OF ANTI-SEIZURE MEDICATIONS NOT BEING ORDERED. DAVID WAS NOTIFIED
[2020-06-08 15:51] VITALS: BP 121/64
--- NOTE | 2020-06-08 18:16 | NUR ---
PATIENT RESTING IN BED. NO COMPLAINTS OR CONCERNS AT THIS TIME
[2020-06-08 19:00] VITALS: BP 95/53
--- NOTE | 2020-06-08 20:00 | NUR ---
PT ALERT AND ORIENTED. IV SITES ON RIGHT ARM PATENT. DRESSING CDI NO COMPLAINT PAIN FROM SITES. PT COMPLAIN OF PAIN IN LOWER BACK AND SHOULDER RATING 10/10 PAIN PILLS GIVEN AT APPROPRIATE TIME. CALL LIGHT AND BELONGING WITHIN REACH. SHE IS LAYING IN BED WATCHING TV.
--- NOTE | 2020-06-09 | NUR ---
PT IN BED SLEEPING. PAIN PILLS GIVEN AT 2144 WITH POSITIVE RESULTS. VANCO STILL UP AND RUNNING NO COMPLAINT OF PAIN FROM IV SITES. CALL LIGHT WITHIN REACH
[2020-06-09 04:00] VITALS: BP 102/59
--- NOTE | 2020-06-09 04:00 | NUR ---
PT CONTINUES TO COMPLAIN OF PAIN EVER 2-3 HOURS. lOWER BACK ALWAYS A 10, PRN PAIN MEDS ADMINISTERED. PT GOES TO SLEEP FOR A HOUR AND WAKES UP ASKING FOR MEDICATION AGAIN EVEN WHEN EDUCATING HER ON TIME IT CAN BE GIVEN WHICH IS EVERY 4 HOURS. WILL CONINUE TO MONITOR
[2020-06-09 05:26] LABS: HEMATOCRIT 32.9 % (37.0-47.0); HEMOGLOBIN 9.6 g/dl (12.0-16.0); MEAN CELL VOLUME 94.8 fL CALC (80.0-100.0); MEAN CORPUSCULAR HGB 27.7 pG CALC (26.0-32.0); MEAN CORPUSCULAR HGB CONC 29.2 g/dL CAL (32.0-36.0); RED BLOOD COUNT 3.47 mill/uL (4.20-5.60); RED CELL DISTRI WIDTH 14.7 % (11.5-15.5)
[2020-06-09 05:50] LABS: ALBUMIN 3.2 g/dL (3.2-5.0); ALKALINE PHOSPHATASE 103 u/l (38-126); ANION GAP 6 (6-22 (CALC)); BILIRUBIN, TOTAL 0.3 mg/dL (0.0-1.4); BUN 18 mg/dL (8-23); BUN/CREATININE RATIO 20 (12-20 (CALC)); CARBON DIOXIDE 30 mmol/l (22-30); CHLORIDE 104 mmol/l (95-108); CREATININE 0.9 mg/dL (0.5-1.0); GFR > 60 ML/MIN (>=60 (CALC)); GFR FOR AFR.AMER. > 60 ML/MIN (>=60 (CALC)); POTASSIUM 4.4 mmol/l (3.5-5.1); SGOT/AST 21 u/l (9-36); SODIUM 136 mmol/l (137-146)
[2020-06-09 09:12] VITALS: BP 112/51
--- NOTE | 2020-06-09 09:45 | NUR ---
ASSESSMENT COMPLETED; PT A/O X3; PT C/O LOWER BACK PAIN AND SHOULDER PAIN; MEDICATED WITH FLEXERIL ORDERED; CALL WILKINS WITHIN REACH; WILL CONTINUE TO MONITOR.
--- NOTE | 2020-06-09 11:00 | NUR ---
PT ASSISTED TO RECLINER; PT CONTINUES TO C/O PAIN 07/19 TO LOWER BACK; CALL WILKINS WITHIN REACH; WILL CONTINUE TO MONITOR.
--- NOTE | 2020-06-09 12:38 | NUR ---
Patient is seen for gait training as before as well as transfer training. She is much more spry this morning and is able to rtransfer OOB to stand with ALBERTO She ambualted 50 feet in room with FWW nad was limmited only by dyspnea and the need for ADL. Am Pac sccore is 15 indicating she would do well with home health intervention at [place]
--- NOTE | 2020-06-09 14:12 | NUR ---
S: ELIZABETH HOGUE is a 69 F who presents with pneumonia. She has a history of hypertension, seizure, high cholesterol, chronic pain, RLS, arthritis, depression, and morbid obesity. All medications in patient's chart were reviewed. O: Vancomycin Trough: 12 mcg/ml VS: BP 112/51 mmHg, P 68 bpm, RR 22 breaths/min, T 97.4 F W 113 kg, HT 67 inches, Scr= 1 mg/dL, CrCl= 96 ml/min A: Blood culture is pending. P: Patient is on cefepime 2 g IV Q8H. Vancomycin ordered for pharmacy to dose. Start Vancomycin 1250 mg IV Q12H. Vancomycin trough is drawn before the 4th dose on 06/11/20 at 1000. Vancomycin goal trough is between 15-20 mcg/ml. Pharmacy will follow and or advise on antibiotics use as needed.
--- NOTE | 2020-06-09 14:40 | NUR ---
PT. MEDICATED ORDERED FOR C/O LOWER BACK 12/18; CALL WILKINS WITHIN REACH; WILL CONTINUE TO MONITOR.
[2020-06-09 15:50] VITALS: BP 120/50
[2020-06-09 20:00] VITALS: BP 119/67
--- NOTE | 2020-06-09 20:00 | NUR ---
PT REMAINS IN BED WATCHING TV. COMPLAINT OF PAIN OF LOWER BACK AND ACCROSS THE SHOULDERS. PRN PAIN MEDS AND FLEXERIL. IV SITES STILL INTACT AND PATENT. OXYGEN STILL ON RUNNING AT 2L. CALL WILKINS WITHIN REACH. WILL CONTINUE TO MONITOR.
--- NOTE | 2020-06-10 | NUR ---
PT SLEEPING PEACEFULLY IN BED. TV ROULETTE DEALER LIGHT WITHIN REACH. WILL CONTINUE TO MONITOR
[2020-06-10 04:00] VITALS: BP 124/54
[2020-06-10 07:25] VITALS: BP 122/53
--- NOTE | 2020-06-10 07:25 | NUR ---
PATIENT LAYING IN BED AT THIS TIME CALL LIGHT WITHIN REACH. PATIENT ALERT AND ORIENTED STATES HER LOWER BACK PAIN IS A 4 AT THIS TIME. PATIENT WAS REPOSTIONED IN BED AT THIS TIME. PATIENT EXHIBITS BILATERAL EDEMA IN LOWER EXTREMITES. SLOTTER OPERATOR DONE AT THIS TIME PATIENT SPO2 IS 97% ON 2 LITERS AND LUNG SOUNDS REMAIN DEMINISHED IN LOWER BASIS AT THIS TIME.
[2020-06-10 08:11] VITALS: BP 122/53
--- NOTE | 2020-06-10 08:13 | NUR ---
PATEINT C/O PAIN IN BACK AT THIS TIME STATES HER PAIN IS A 6 OUT OF A PAIN SCALE OF 0-10. MEDICATED WITH 10MG OF LORITAB AT THIS TIME. WILL CONTINUE TO MONITOR. SIDERAILS ARE UP CALL LIGHT IS WITHIN REACH.
--- NOTE | 2020-06-10 08:38 | NUR ---
PATIENT STATES PAIN LEVEL IS NOW A 4 AT THIS TIME CALL LIGHT IS WITHIN REACH.
--- NOTE | 2020-06-10 12:00 | NUR ---
PATIENT LAYING IN BED AT THIS TIME WITH EYES CLOSED. RESPIRATIONS EVEN AND UNLABORED. PATIENT AWAKEN AT THIS TIME AND DENIES ANY NEEDS. PATIENT SIDEREAILS ARE UP CALL LIGHT WITHIN REACH.
[2020-06-10] MEDS ORDERED: ZPAK PO (12:17)
[2020-06-10 12:31] LABS: HEMATOCRIT 32.7 % (37.0-47.0); HEMOGLOBIN 9.6 g/dl (12.0-16.0); MEAN CELL VOLUME 94.8 fL CALC (80.0-100.0); MEAN CORPUSCULAR HGB 27.8 pG CALC (26.0-32.0); MEAN CORPUSCULAR HGB CONC 29.4 g/dL CAL (32.0-36.0); RED BLOOD COUNT 3.45 mill/uL (4.20-5.60); RED CELL DISTRI WIDTH 14.4 % (11.5-15.5)
--- NOTE | 2020-06-10 12:40 | NUR ---
PATIENT D/C AT THIS TIME. PATIENT VERBALIZES UNDERSTANDING OF DC INSTRUCTIOIN.
[2020-06-10 12:56] LABS: ANION GAP 8 (6-22 (CALC)); BUN 13 mg/dL (8-23); BUN/CREATININE RATIO 16 (12-20 (CALC)); CARBON DIOXIDE 29 mmol/l (22-30); CHLORIDE 105 mmol/l (95-108); CREATININE 0.8 mg/dL (0.5-1.0); GFR > 60 ML/MIN (>=60 (CALC)); GFR FOR AFR.AMER. > 60 ML/MIN (>=60 (CALC)); POTASSIUM 4.2 mmol/l (3.5-5.1); SODIUM 137 mmol/l (137-146)
--- NOTE | 2020-06-10 12:57 | NUR ---
Discharge instructions given. Patient verbalizes understanding of same. Discharged in stable condition via Wheelchair to *Other with *Other. All belongings sent with pt.
== END 2020-06-10 12:57 | disposition home or self-care (01) | DRG 191 ==
LOC: ED 18:14 → ED-I 06-08 00:07 → ED 06-08 00:30 → MS2 06-08 00:31
PROVIDERS: Family Medicine; Nurse Practitioner; ADMIT Internal Medicine; ATTEND Internal Medicine
DX: J44.1 Chronic obstructive pulmonary disease with (acute) exacerbation (principal); N17.9 Acute kidney failure, unspecified; E66.2 Morbid (severe) obesity with alveolar hypoventilation; F11.20 Opioid dependence, uncomplicated; J44.0 Chronic obstructive pulmonary disease with (acute) lower respiratory infection; J20.9 Acute bronchitis, unspecified; R09.02 Hypoxemia; I10 Essential (primary) hypertension; E78.5 Hyperlipidemia, unspecified; G89.4 Chronic pain syndrome; F32.9 Major depressive disorder, single episode, unspecified; G40.909 Epilepsy, unspecified, not intractable, without status epilepticus; M35.3 Polymyalgia rheumatica; Z68.39 Body mass index [BMI] 39.0-39.9, adult; Z96.89 Presence of other specified functional implants; Z99.81 Dependence on supplemental oxygen; Z86.16 Personal history of COVID-19
CPT/HCPCS: J0692; J1650; J3370; Q9967